=== PATIENT | male | born 1940 | race Caucasian/White ===

== ENCOUNTER 2018-08-27 21:51 | Inpatient (IN) | payer OTHER ==
--- OUTSIDE RECORDS SUMMARY | 2018-08-27 21:56 | XMS REPORT | Continuity of Care Document ---
:1940 Author Organization Interface Problems Problem Status Onset Classification Date Comments Source Date Reported BEDDED Active 01/14/20 [facility] OUTPATIENT/LEFT Medical NEPHROSTOMY TUBE Center BEDDED Active 10/30/19 [facility] OUTPATIENT/PCN Medical REPLACEMENT Center INDWELLING LINE Active 09/25/20 [place] [address] [facility] OTHER Active 09/25/[address] LABS--FOLLOW UP Active 09/03/[address] DECETAXEL Active 09/03/[address] LABS/FIRMAGON Active 09/03/[address] BEDDED Active 08/26/20 [facility] OUTPATIENT/BILATER Medical AL NEPHROSTOMY Center Kidney problem Resolved 07/30/20 Problem 02/28/2017 MICHAELA 16 Michael,[facility] PROSTATE CANCER Active 07/18/[address] Prostate carcinoma Active 09/28/18 Problem 02/28/2017 MICHAELA 93 Michael,[facility] High blood Resolved Problem 02/28/2017 MICHAELA pressure Michael,[facility] Hyperthyroidism Resolved Problem 02/28/2017 [facility],2.1 [id number], [place] Mayes MICHAELA [facility], MICHAELA Rodriguez Obesity Active Problem 02/28/2017 [facility] Kidney pain Active Problem 02/28/2017 MICHAELA Rodriguez,[facility] MECH COMPL OF Active [facility] Medication Details Route Status Patient Ordering Order Source Instructions Provider Date degarelix 80 mg, Route: Inactive 01/27/ [facility] SUB-Q, Drug 2016 Medical form: PDR/INJ, Center On Adm, Start date: 01/27/17 14:00:00 CDT, Duration: 1 doses or times, Stop date: 01/27/17 23:00:00 CDTNotes: Same as: Firmagon Non Formulary WASTE: F/P - Black; E - Yellow MEDICATION WASTE Product Size: 80 mg Product Wasted: 0 mg Hydromorphone 1 mg, 0.5 mL, Inactive [facility] Route: IVP, 2016 Medical Drug form: INJ, Center Q4H, Dosing Weight 90.909, kg, PRN Pain Score 7-10, Start date: 01/14/17 9:40:00 CDT, Duration: 30 day, Stop date: 02/13/17 9:39:00 CDTNotes: Same as: Dilaudid Ondansetron 4 mg, 2 mL, Inactive [facility] Route: IVP2016 Medical Drug form: INJ, Center Q8H, Dosing Weight 90.909, kg, PRN Nausea & Vomiting, Start date: 01/14/17 9:40:00 CDT, Duration: 30 day, Stop date: 02/13/17 9:39:00 CDTNotes: (Same as: Zoaugustina) MEDICATION WASTE Product Size: 4 mg Product Wasted: ___ mg Midazolam 0.5 mg, Route: Inactive [facility] IV, ONCE, 2016 Medical Dosing Weight Center 90.909, kg, Start date: 01/14/17 9:14:00 CDT, Stop date: 01/14/17 9:14:00 CDT Fentanyl 25 microgram, Inactive [facility] Route: IV, 2016 Medical ONCE, Dosing Center Weight 90.909, kg, Start date: 01/14/17 9:14:00 CDT, Stop date: 01/14/17 9:14:00 CDT, Midazolam 0.5 mg, Route: Inactive [facility] IV, ONCE, 2016 Medical Dosing Weight Center 90.909, kg, Start date: 01/14/17 9:06:00 CDT, Stop date: 01/14/17 9:06:00 CDT Fentanyl 25 microgram, Inactive [place] Route: IV, 2017 Medical ONCE, Dosing Center Weight 90.909, kg, Start date: 01/14/17 9:06:00 CDT, Stop date: 01/14/17 9:06:00 CDT, Levaquin 750 mg, 150 mL, Inactive [place] Route: IVPB, 2016 Medical Drug form: [place] SOLN, ONCE, Dosing Weight 90.909, kg, Start date: 01/14/17 7:12:00 CDT, Stop date: 01/14/17 7:12:00 CDTNotes: (Same as:Levaquin) Ciprofloxacin PO, Take for 7 Active [facility] 2016 Medical Center Ciprofloxacin 500 500 mg=1 tab, No Longer [place] MG Oral Tablet PO, BID, for Active 2016 Medical [Cipro] UTI, X 7 day, # Center 14 tab, 0 Refill(s), Pharmacy: [id number], cancel previous RX for cipro degarelix 80 mg, Route: Inactive [place] SUB-Q, Drug 2016 Medical form: PDR/INJ, Center ONCALL, Start date: 12/04/16 14:00:00 BREAKFAST BAR ATTENDANT, Duration: 1 doses or times, Stop date: 12/05/16 0:00:00 CSTNotes: Same as: Firmagon Non Formulary WASTE: F/P - Black; E - Yellow MEDICATION WASTE Product Size: 80 mg Product Wasted: _0__ mg ciprofloxacin 500 500 mg=1 tab, No Longer .16.840 mg oral tablet PO, Q12H, for Active 2016 .1.66463 possible UTI, X 3.3.615. 1 day, # 2 tab, 95 0 Refill(s), Pharmacy: [id number] degarelix 80 mg, Route: Inactive [place] SUB-Q, Drug 2016 Medical form: PDR/INJ, Center ONCALL, Start date: 11/06/16 7:00:00 BREAKFAST BAR ATTENDANT, Duration: 1 doses or times, Stop date: 11/06/16 21:00:00 CSTNotes: Same as: Firmagon Non Formulary WASTE: F/P - Black; E - Yellow MEDICATION WASTE Product Size: 80 mg Product Wasted: _0__ mg DOXOrubicin 40 mg Route: IV, Drug Inactive [place] + empty container form: INJ, 2016 Medical 1 bag + sodium ONCALL, Start Center chloride 0.9% INJ date: 10/28/16 28 mL 7:00:00 BREAKFAST BAR ATTENDANT, Duration: 1 doses or times, Stop date: 10/28/16 21:00:00 CSTNotes: (Same as: Adriamycin) WASTE: F/P - Black; E - Yellow CHEMOTHERAPY; Infuse entire contents for full dose DOXOrubicin 40 mg Route: IV, Drug Inactive [place] + empty container form: INJ, 2016 Medical 1 bag + sodium ONCALL, Start Center chloride 0.9% INJ date: 10/21/16 28 mL 7:00:00 BREAKFAST BAR ATTENDANT, Duration: 1 doses or times, Stop date: 10/21/16 21:00:00 CSTNotes: (Same as: Adriamycin) WASTE: F/P - Black; E - Yellow CHEMOTHERAPY; Infuse entire contents for full dose Sodium Chloride IV, 500 ml/hr, Inactive [place] 0.45% IV On Adm, Start 2016 Medical date: 10/14/16 Center 11:23:00 BREAKFAST BAR ATTENDANT, Duration: 1, 1,000 ml Zofran 8 mg, 2 tab, Inactive [place] Route: PO, Drug 2016 Medical form: TAB, On Center Adm, Start date: 10/14/16 7:00:00 BREAKFAST BAR ATTENDANT, Duration: 1 doses or times, Stop date: 10/14/16 21:00:00 CSTNotes: (Same as: Zofran) DOCEtaxel 70 mg + Route: IV, On Inactive [place] Overfill Diluent Adm, Start 2016 Medical Estimated 25 mL + date: 10/14/16 [place] sodium chloride 7:00:00 BREAKFAST BAR ATTENDANT, 0.9% INJ 250 mL Duration: 1 doses or times, Stop date: 10/14/16 21:00:00 CSTNotes: Same as: Taxotere Use non-PVC bag and tubing set for administration. CHEMOTHERAPY.I nfuse entire contents for full dose WASTE: F/P - Black; E - Yellow MEDICATION WASTE Product Size: 80 mg Product Wasted: __10_ mg Benadryl 25 mg, 0.5 mL, Inactive [facility] Route: IV, Drug 2016 Medical form: INJ, On Center Adm, Start date: 10/14/16 7:00:00 BREAKFAST BAR ATTENDANT, Duration: 1 doses or times, Stop date: 10/14/16 21:00:00 CSTNotes: (Same as: Benadryl) dexamethasone 12 mg, 50 mL, Inactive [facility] Route: IVPB, 2017 Medical Drug form: Center SOLN, On Adm, Start date: 10/14/16 7:00:00 BREAKFAST BAR ATTENDANT, Duration: 1 doses or times, Stop date: 10/14/16 21:00:00 CSTNotes: (Same as: Decadron) Use with 50 mL NS bag degarelix 80 mg, Route: Inactive [facility] SUB-Q, Drug 2016 Medical form: PDR/INJ, Center ONCALL, Start date: 10/07/16 13:00:00 BREAKFAST BAR ATTENDANT, Duration: 1 doses or times, Stop date: 10/07/16 21:00:00 CSTNotes: Same as: Firmagon Non Formulary WASTE: F/P - Black; E - Yellow MEDICATION WASTE Product Size: 80 mg Product Wasted: _0__ mg DOXOrubicin 40 mg Route: IV, Drug Inactive [facility] + empty container form: INJ, 2017 Medical 1 bag + sodium ONCALL, Start Center chloride 0.9% INJ date: 10/07/16 28 mL 7:00:00 BREAKFAST BAR ATTENDANT, Duration: 1 doses or times, Stop date: 10/07/16 21:00:00 CSTNotes: (Same as: Adriamycin) WASTE: F/P - Black; E - Yellow CHEMOTHERAPY; Infuse entire contents for full dose promethazine 12.5 12.5 mg=1 tab, Active .16.840 mg oral tablet PO, TID, PRN 2017 .1.34989 Nausea & 3.3.615. Vomiting, X 10 95 day, # 30 tab, 5 Refill(s), Pharmacy: [id number] POLYETHYLENE 17 gm, 1 pkt, No Longer [facility] GLYCOL 3350 Route: PO, Drug Active 2015 Medical form: PWDR, Center Daily, Dosing Weight 90, kg, Start date: 09/26/16 9:00:00 BREAKFAST BAR ATTENDANT, Duration: 30 day, Stop date: 10/25/16 9:00:00 CSTNotes: Dissolve in 8 oz of water or juice. (Same as: Miralax) sennosides, GROUP HOME 17.2 mg, 2 tab, Inactive [facility] Route: PO, Drug 2015 Medical Form: TAB, Center Dosing Weight 90, kg, Bedtime, Start date: 09/25/16 21:00:00 BREAKFAST BAR ATTENDANT, Duration: 30 day, Stop date: 10/24/16 21:00:00 CSTNotes: (Same as: Senokot) Docusate 100 mg, 1 cap, Inactive [place] Route: PO, Drug 2015 Medical form: CAP, BID, Center Dosing Weight 90, kg, Start date: 09/25/16 17:00:00 BREAKFAST BAR ATTENDANT, Duration: 30 day, Stop date: 10/25/16 9:00:00 CSTNotes: (Same as: Colace) (Do Not Crush) Ondansetron 4 MG 4 mg=1 tab, PO, Active [place] Oral Tablet Q6H, PRN 2016 Medical [Zofran] Nausea/Vomiting Center , X 8 day, # 30 tab, 0 Refill(s) tramadol 1 - 2 tabs, PO, Active [place] hydrochloride 50 Q4-6H, PRN Pain 2016 Medical MG Oral Tablet Score 4-6, X 4 Center [Ultram] day, # 30 tab, 0 Refill(s) Cephalexin 500 MG 500 mg=1 cap, Active [place] Oral Capsule PO, QID, X 7 2016 Medical [Keflex] day, # 28 cap, Center 0 Refill(s) Fish Oil 1000 mg 1,000 mg=1 cap, On Hold [place] oral capsule PO, Daily, 0 2016 Medical Refill(s) Center simvastatin 20 mg 20 mg=1 tab, On Hold [facility] oral tablet PO, Bedtime, # 2016 Medical 30 tab, 1 Center Refill(s) Tramadol 50 mg, 1 tab, Inactive [facility] Route: PO, Drug 2015 Medical form: TAB, Center Q6Hnow, Dosing Weight 90, kg, Start date: 09/25/16 10:00:00 BREAKFAST BAR ATTENDANT, Duration: 30 day, Stop date: 10/25/16 4:00:00 CSTNotes: Not to exceed 400mg/day. (Same As: Ultram) Ondansetron 4 mg, 2 mL, Inactive [facility] Route: IVP2015 Medical Drug form: INJ, Center Q8H, Dosing Weight 90, kg, PRN Nausea & Vomiting, Start date: 09/25/16 9:56:00 BREAKFAST BAR ATTENDANT, Duration: 30 day, Stop date: 10/25/16 9:55:00 CSTNotes: (Same as: Holly) MEDICATION WASTE Product Size: 4 mg Product Wasted: ___ mg Methocarbamol 1,000 mg, 2 Inactive [facility] tab, Route: PO, 2015 Medical Drug form: TAB, Center Q8H, Dosing Weight 90, kg, PRN Muscle Spasms, Start date: 09/25/16 9:56:00 BREAKFAST BAR ATTENDANT, Duration: 30 day, Stop date: 10/25/16 9:55:00 CSTNotes: (Same as:Robaxin) Oxycodone 10 mg, 2 tab, Inactive [facility] Hydrochloride 5 Route: PO, Drug 2015 Medical MG Oral Tablet form: TAB, Q4H, Center Dosing Weight 90, kg, PRN Pain Score 7-10, Start date: 09/25/16 9:56:00 BREAKFAST BAR ATTENDANT, Duration: 30 day, Stop date: 10/25/16 9:55:00 CSTNotes: (Same as: Roxicodone) Morphine 2 mg, 0.5 mL, Inactive [facility] Route: IVP, 2015 Medical Drug form: Center SOLN, Q4H, Dosing Weight 90, kg, PRN Pain Score 7-10, Start date: 09/25/16 9:56:00 BREAKFAST BAR ATTENDANT, Duration: 30 day, Stop date: 10/25/16 9:55:00 CSTNotes: (Same as:MORPhine Sulfate) Acetaminophen 1,000 mg, 2 Inactive [place] tab, Route: PO, 2016 Medical Drug form: TAB, Center Q6Hnow, Dosing Weight 90, kg, PRN Pain 1-3/Temp > 100.4 F, Start date: 09/25/16 9:56:00 BREAKFAST BAR ATTENDANT, Duration: 30 day, Stop date: 10/25/16 9:55:00 CSTNotes: Max acetaminophen 4000 mg/day (4 gm/day). (Same as: Tylenol Extra Strength) ketoconazole 200 See Active .16.840 mg oral tablet Instructions, 2 2016 .1.24818 tabs PO tid x 7 3.3.615. days on weeks 95 1, 3, and 5; empty stomach; take each dose with Vit C 250mg, # 84 tab, 5 Refill(s), Pharmacy: [facility]/pharmacy #[id number] promethazine 12.5 12.5 mg=1 tab, Active .16.840 mg oral tablet PO, QID, PRN 2016 .1.31346 Nausea & 3.3.615. Vomiting, X 30 95 day, # 120 tab, 5 Refill(s), Pharmacy: [facility]/pharmacy #[id number] ondansetron 8 mg 8 mg=1 tab, PO, Active .16.840 oral tablet TID, PRN 2016 .1.16343 nauea-vomiting, 3.3.615. X 30 day, # 90 95 tab, 3 Refill(s), Pharmacy: [facility]/pharmacy #[id number] dexamethasone 4 See Active .16.840 mg oral tablet Instructions, 1 2016 .1.82634 tab PO BID day 3.3.615. before, day of, 95 day after taxotere infusion, # 30 tab, 1 Refill(s), Pharmacy: [facility]/pharmacy #[id number] warfarin 1 mg 1 mg=1 tab, PO, Active .16.840 oral tablet Daily, # 30 2016 .1.48597 tab, 5 3.3.615. Refill(s), 95 Pharmacy: [facility]/pharmacy #[id number] Estramustine 140 See Active .16.840 MG Oral Capsule Instructions, 2 2015 .1. [Emcyt] cap PO TID x 7 3.3.615. days on weeks 95 2, 4, and 6, # 84 caplet, 5 Refill(s), Pharmacy: [facility]/pharmacy #[id number] hydrocortisone 10 See Active .16.840 mg oral tablet Instructions, 2 2015 .1. tabs PO QAM and 3.3.615. 1 tab QPM, # 90 95 tab, 5 Refill(s), Pharmacy: [facility]/pharmacy #[id number] DOXOrubicin + 42 mg, 21 mL, Inactive [place] sodium chloride Route: IV, Drug 2015 Medical 0.9% INJ 27 mL form: INJ, Center ONCALL, Start date: 09/08/16 7:00:00 BREAKFAST BAR ATTENDANT, Duration: 1 doses or times, Stop date: 09/08/16 21:00:00 CSTNotes: (Same as: Adriamycin) WASTE: F/P - Black; E - Yellow CHEMOTHERAPY; Infuse entire contents for full dose Tramadol 50 mg, 1 tab, No Longer [place] Route: PO, Drug Active 2015 Medical form: TAB, Q6H, Center Dosing Weight 95.909, kg, PRN Pain Score 4-6, Start date: 08/29/16 15:13:00 BREAKFAST BAR ATTENDANT, Duration: 30 day, Stop date: 09/28/16 15:12:00 CSTNotes: Not to exceed 400mg/day. (Same As: Ultram) Acetaminophen 650 mg, 2 tab, No Longer [place] Route: PO, Drug Active 2015 Medical form: TAB, Q4H, Center Dosing Weight 95.909, kg, PRN Pain Score 1-3, Start date: 08/29/16 15:13:00 BREAKFAST BAR ATTENDANT, Duration: 30 day, Stop date: 09/28/16 15:12:00 CSTNotes: Do not exceed 4 gm/day. (Same as: Tylenol) Versed 0.5 mg, Route: Inactive [place] IV, ONCE, 2015 Medical Dosing Weight Center 95.909, kg, Start date: 08/29/16 14:02:00 BREAKFAST BAR ATTENDANT, Stop date: 08/29/16 14:02:00 BREAKFAST BAR ATTENDANT Fentanyl 25 microgram, Inactive [facility] Route: IV, 2015 Medical ONCE, Dosing Center Weight 95.909, kg, Start date: 08/29/16 14:02:00 BREAKFAST BAR ATTENDANT, Stop date: 08/29/16 14:02:00 BREAKFAST BAR ATTENDANT, Versed 1 mg, Route: Inactive [facility] IV, ONCE, 2015 Medical Dosing Weight Center 95.909, kg, Start date: 08/29/16 13:03:00 BREAKFAST BAR ATTENDANT, Stop date: 08/29/16 13:03:00 BREAKFAST BAR ATTENDANT Fentanyl 50 microgram, Inactive [facility] Route: IV, 2015 Medical ONCE, Dosing Center Weight 95.909, kg, Start date: 08/29/16 13:03:00 BREAKFAST BAR ATTENDANT, Stop date: 08/29/16 13:03:00 BREAKFAST BAR ATTENDANT, Fentanyl 50 microgram, Inactive [facility] Route: IV, 2015 Medical ONCE, Dosing Center Weight 95.909, kg, Start date: 08/29/16 12:50:00 BREAKFAST BAR ATTENDANT, Stop date: 08/29/16 12:50:00 BREAKFAST BAR ATTENDANT, Versed 1 mg, Route: Inactive [facility] IV, ONCE, 2015 Medical Dosing Weight Center 95.909, kg, Start date: 08/29/16 12:50:00 BREAKFAST BAR ATTENDANT, Stop date: 08/29/16 12:50:00 BREAKFAST BAR ATTENDANT Levaquin 750 mg, Route: Inactive [facility] IVPB, Drug 2015 Medical form: CAITN, [place] ONCE, Dosing Weight 95.909, kg, Start date: 08/29/16 10:31:00 BREAKFAST BAR ATTENDANT, Stop date: 08/29/16 10:31:00 BREAKFAST BAR ATTENDANT Multiple Vitamins 1 tab, PO, Active [place] oral tablet Daily, 0 2015 Medical Refill(s) [place] degarelix 240 mg, Route: Inactive [facility] SUB-Q, Drug 2015 Medical form: PDR/INJ, Center On Adm, Start date: 08/27/16 13:05:00 BREAKFAST BAR ATTENDANT, Duration: 1 doses or times, Stop date: 08/28/16 0:00:00 CSTNotes: Same as; Firmagon Non Formulary WASTE: F/P - Black; E - Yellow MEDICATION WASTE Product Size: 240 mg Product Wasted: ___ mg Tylenol PO, 0 Refill(s) Active [facility] 2015 Medical [place] levothyroxine 100 100 microgram=1 Active [facility] mcg (0.1 mg) oral tab, PO, Daily, 2016 Medical tablet 0 Refill(s) [place] Turmeric Turmeric, 720 Active [place] mg=, Refill(s) 2015 Medical 0 Center jennifer rodriguez, 225mcg, Active [facility] Refill(s) 0 2015 Medical [place] simvastatin 20 mg 20 mg=1 tab, Active [facility] oral tablet PO, Bedtime, 0 2015 Medical Refill(s) [place] Vitamin C 1000 mg 1,000 mg=1 tab, Active [facility] oral tablet PO, Daily, 0 2015 Medical Refill(s) [place] omega-3 1,000 mg=1 cap, Active [facility] polyunsaturated PO, TID, 0 2015 Medical fatty acids 1000 Refill(s) Center mg oral capsule lisinopril 10 mg 10 mg=1 tab, Active [facility] oral tablet PO, Daily, 0 2015 Medical Refill(s) [place] vitamin E with 0 Refill(s) Active [place] mixed tocopherols 2016 Medical 400 intl units [place] oral capsule Vitamin D3 5000 5,000 Active [place] intl units oral IntlUnit=1 tab, 2016 Medical tablet PO, Daily, 0 Center Refill(s) Allergies, Adverse Reactions, Alerts Substance Category Reaction Severity Reaction Status Date Comments Source type Reported Immunizations Immunization Date Given Site Status Last Updated Comments Source Results Order Name Results Value Reference Date Interpretation Comments Source Range CHEM PANEL eGFR 49 01/14 Result Comment: The eGFR is calculated using the CKD-EPI formula. In most young, healthy individuals the eGFR will be >90 mL/ min/1.73m2. The eGFR declines with age. An eGFR of 60-89 may be normal in [facility] mL/min/1.7 some populations, particularly the elderly, for whom the CKD-EPI formula has not been extensively validated. Use of the eGFR is not recommended in the following populations: [address] Individuals with unstable creatinine concentrations, including patients and those with serious co-morbid conditions. Patients with extremes in muscle mass or diet. The data above are obtained from the National Kidney Disease Education Program (NKDEP) which additionally recommends that when the eGFR is used in patients with extremes of body mass index for purposes of drug dosing, the eGFR should be multiplied by the estimated BMI. CHEM PANEL Total 6.6 g/dL 6.4 - 8.4 01/[address] [facility] CHEM PANEL Calcium Lvl 8.9 mg/dL 8.5 - 10.5 01/14 [facility]2016 [facility] CHEM PANEL Albumin Lvl 3.1 g/dL 3.5 - 5.0 01/[address] [facility] CHEM PANEL ALT 16 unit/L 0 - 65 01/[address] [facility] CHEM PANEL AST 12 unit/L 0 - 37 01/14 [facility]2016 [facility] CHEM PANEL Alk Phos 75 unit/L 39 - 136 01/[address] [facility] CHEM PANEL Bili Total 0.4 mg/dL 0.2 - 1.3 01/[address] [facility] CHEM PANEL Creatinine 1.38 mg/dL 0.50 - 01/14 [facility] Lvl [address].40 [facility] CHEM PANEL Sodium Lvl 141 meq/L 135 - 145 01/[address] [facility] CHEM PANEL Chloride Lvl 106 meq/L 95 - 109 01/14 [facility] CHEM PANEL CO2 27 meq/L 24 - 32 01/14 [facility] CHEM PANEL Potassium 3.6 meq/L 3.5 - 5.1 01/[address] [facility] CHEM PANEL BUN 22 mg/dL 7 - 22 01/14 [facility] CHEM PANEL Glucose Lvl 92 mg/dL 70 - 99 01/14 [facility] CHEM PANEL B/C Ratio 16 6 - 25 01/14 [facility] CHEM PANEL A/G Ratio 0.9 0.7 - 1.6 01/14 [facility] CHEM PANEL Globulin 3.5 g/dL 2.7 - 4.2 01/14 [facility] CHEM PANEL AGAP 11.6 meq/L 10.0 - 01/[address] [facility] HEMATOLOGY PTT 29.0 s 22.9 - 01/[address] [facility] HEMATOLOGY PT 13.3 s 12.0 - 01/[address] [facility] HEMATOLOGY INR 0.99 0.85 - 01/[address] [facility] HEMATOLOGY Hct 37.9 % 42.0 - 01/[address] [facility] HEMATOLOGY MCV 87.2 fL 80.0 - 01/[address] [facility] HEMATOLOGY Hgb 12.2 g/dL 14.0 - 01/[address] [facility] HEMATOLOGY MPV 7.9 fL 7.4 - 10.4 01/14 [facility] HEMATOLOGY WBC 7.3 K/CMM 3.7 - 10.4 01/14 [facility] HEMATOLOGY RBC 4.34 M/CMM 4.70 - 01/[address] [facility] HEMATOLOGY Platelet 240 K/CMM 133 - 450 01/14 [facility] HEMATOLOGY MCHC 32.2 g/dL 32.0 - 01/[address] [facility] HEMATOLOGY RDW 14.7 % 11.5 - 01/[address] [facility] HEMATOLOGY MCH 28.1 pg 27.0 - 01/[address] [facility] HEMATOLOGY Basophils # 0.1 K/CMM 0.0 - 0.2 01/[address] [facility] HEMATOLOGY Eosinophils 0.3 K/CMM 0.0 - 0.5 01/14 [facility] # /2017 [facility] HEMATOLOGY Lymphocytes 31.9 % 20.0 - 01/[address] [place] [address] [facility] HEMATOLOGY Monocytes # 0.7 K/CMM 0.0 - 0.8 01/[address] [facility] HEMATOLOGY Segs-Bands # 4.0 K/CMM 1.5 - 8.1 01/14 /2016 [facility] HEMATOLOGY Segs 54.3 % 45.0 - 01/[address] [place] [address] [facility] HEMATOLOGY Basophils 0.7 % 0.0 - 1.0 01/14 [facility]2016 [facility] HEMATOLOGY Lymphocytes 2.3 K/CMM 1.0 - 5.5 01/[address] [facility] HEMATOLOGY Monocytes 9.5 % 2.0 - 12.0 01/14 [facility]2016 [facility] HEMATOLOGY Eosinophils 3.6 % 0.0 - 4.0 01/[address] [facility] Nephrostomy Nephrostomy PROCEDURES: 01/14 - [facility] tube tube - Medical exchange VR exchange VR 1. Left antegrade nephrostogram through existing nephrostomy tube. This report was dictated by a Rn Home Care/ Fellow. I have personally reviewed the images as Center well as the Resident's interpretation and agree with the findings. 2. Right antegrade nephrostogram through existing nephrostomy tube. Read by: Farrukh Boogie MD Resident: Farrukh Boogie MD Dictated Date/time: 01/14/17 09:43 3. Left nephrostomy tube exchange. Electronically Signed by: Leslie Bruno MD 01/14/17 09:53 FINAL REPORT 4. Right nephrostomy tube exchange. OPERATORS: Farrukh Boogie MD MPH. ATTENDING: Leslie Bruno MD. FLUOROSCOPY: 4.0 minutes. PROCEDURE IN DETAIL: Informed written consent was obtained. A timeout was performed verifying the correct patient and procedure. The patient is placed in the prone position. The patient's back was prepped and draped in the normal sterile fashion. Antegrade nephrostogram through the existing left nephrostomy tube was performed demonstrating complete occlusion of the tube. Antegrade nephrostogram of the right nephrosto my tube was performed demonstrating patency of the tube. Our attention was first turned to exchanging the left nephrostomy tube. A Glidewire was not able to be passed through the clogged tube. A Glidewire was then inserted into the tract, parallel to the tube . The existing tube was then removed and a new 10.2-[place] nephrostomy tube was placed over the guidewire into the left collecting system. Adequate positioning was confirmed with contrast injection. The tube was secured to the skin with Prolene suture. A sterile dressing was applied. Our attention was then turned to exchanging the right nephrostomy tube. A fixed core guidewire was passed through the tube. The existing tube was then removed and a new 10.2-[place] nephrostomy tube was placed over the guidewire into the right collecting system. Adequate positioning was confirmed with contrast injection. The tube was secured to the skin with Prolene suture. A sterile dressing was applied. The patient tolerated the procedure well without evidence of immediate complication. IMPRESSION: 1. Completely clogged left nephrostomy tube. 2. Successful exchange of bilateral nephrostomy tubes. PLAN: 1. Routine check and change of bilateral nephrostomy tubes in 2 months. The tubes may be flushed with 10 mL sterile saline up to 3 times a day to maintain patency. Pelvis w/wo Pelvis w/wo EXAM: MR PELVIS WITH AND WITHOUT CONTRAST 01/01 - [facility] contrast contrast MRI /2016 - [facility] This report was dictated by a Rn Home Care/Fellow. I have personally reviewed the images as well as the Resident's interpretation and agree with the findings. DATE: 01/01/2017 3:01 PM CDT Read by: Cheyanne Harrington MD Resident: Cheyanne Harrington MD Dictated Date/time: 01/02/17 09:29 Electronically Signed by: Rio Bob MD 01/02/17 15:35 FINAL REPORT INDICATION: Prostate cancer - prostate protocol ADDITIONAL INFORMATION: None. COMPARISON: MRI August 27, 2016 TECHNIQUE: TECHNIQUE: Multiplanar, multisequence acquisition of the prostate both prior to and following intravenous contrast, per the dynamic prostate protocol. Axial, sagittal and coronal reconstructi ons. The study was transferred to work station for post processing. IV contrast: 20 mL MultiHance FINDINGS: Decrease in size of the infiltrative tumor which circumferentially involves the urethrovesical junction and extends to the bladder base. Although difficult to measure due to its infiltrative nature, it measures approximately 1.9 x 2 cm (compared to 2.5 x 2.3 cm previously. There is still abnormal early enhancement, although, the lesion demonstrates less diffusion restriction compared to previously. Th ere is continued low T2 signal of the seminal vesicles which suggests involvement. Lymph nodes: No pelvic lymphadenopathy. Bones: No suspicious abnormality IMPRESSION: Decrease in size of the infiltrative tumor which circumferentially involves the urethrovesical junction extending to the bladder base. Abdomen/Pel Abdomen/Pelv EXAM: CT ABDOMEN AND PELVIS WITH CONTRAST 11/19 - [facility] vis w IV is w /2016 - [facility] contrast CT contrast CT Imaging DATE: 11/19/2016 2:42 PM BREAKFAST BAR ATTENDANT Read by: Saturnion Kim MD Dictated Date/time: 11/19/16 13:54 Electronically Signed by: Saturnino Kim MD 11/19/16 14:10 FINAL REPORT INDICATION: Prostate cancer. Patient had history of prostate cancer years ago with recurrence. The patient has been on chemotherapy for the past 2 weeks. ADDITIONAL INFORMATION: History of prior hyperintensity focused ultrasound for prostate cancer. COMPARISON: CT scan of the abdomen and pelvis of 08/20/2016. MRI of the prostate of 08/27/2016. TECHNIQUE: Volumetric CT acquisition of the abdomen and pelvis after intravenous contrast. Axial, coronal and sagittal reconstructions. Postcontrast phases: Venous and delayed. IV contrast: 100 cc of Omnipaque 300 Oral contrast: Redicat. FINDINGS: Lines and tubes: Bilateral nephrostomy tubes have been placed in the interim with resolution of bilateral hydroureteronephrosis. The pigtails of both nephrostomy tubes are located within the renal pelvises. Lower thorax: Please see the separate CT scan of the chest performed concurrently with this exam for details on the lower thorax.. Liver: Normal. Biliary tree: No intra- or extrahepatic biliary ductal dilation. Gallbladder: Normal. No CT evidence of gallstones. Pancreas: Normal. Spleen: Normal. Adrenals: Normal. Kidneys and ureters: Stable renal cysts are demonstrated. Other tiny hypodensities which are too small to characterize are seen in both kidneys. Bilateral nephrostomy tubes are demonstrated as above. A nonobstructing stable 5 mm calculus is seen in the left kidney interpolar minor calyceal system posteriorly. The right kidney is again noted to be somewhat atrophic with decreased relative enhancement w ith respect to the left kidney. The ureters are of normal course and caliber. Bladder: There is diffuse bladder wall thickening present, new from the prior exam. Bladder wall measures 9 mm in maximal thickness. There is new mucosal enhancement of the bladder is well. No surrounding stranding is noted. Prostate: An enhancing soft tissue mass is again seen along the anterior central aspect of the prostate gland measuring approximately 2.0 cm in maximal diameter at the level of the ureterovesicular junc tion with extension into the bladder base and seminal vesicles as seen on the prior prostate MRI. This lesion may have slightly decreased in size and appear the prior CT exam although exact comparison is difficult. Gastrointestinal tract: The stomach is normal in appearance. Scattered colonic diverticuli are again demonstrated with no CT evidence of acute diverticulitis. No other abnormalities of the large and sm all bowel are seen. The small intestine and colon are of normal course and caliber with no constricting or obstructing lesions, masses, or surrounding inflammatory changes. No rectal or perirectal abnormalities are seen. Appendix: Normal Peritoneum and retroperitoneum: No ascites or free air. Lymph nodes: No abdominal or pelvic lymphadenopathy is seen. No periprostatic lymphadenopathy is demonstrated. Vasculature: Stable calcified atherosclerotic plaque formation is present in the arterial structures. No aneurysms or dissections are seen. The inferior vena cava and portal venous system are normal in appearance. Bones: Stable degenerative changes are present in the visualized thoracolumbar spine with disc space height loss at L5-S1. No suspicious lytic or blastic lesions are seen.. Soft tissues/abdominal wall: Normal. No hernias, masses, or fluid collections are seen. IMPRESSION: 1. Mass within the prostate as described above and as fully characterized on the prior MRI of 08/27/2016. Exact comparison is difficult to perform on CT examination. The lesion appears to be slightly sm aller based on CT. Repeat MRI of the prostate gland may be performed for further evaluation. 2. Status post placement of bilateral nephrostomy tubes with resolution of bilateral hydroureteronephrosis. 3. Stable atrophy of the right kidney with slightly delayed/decreased enhancement of the right kidney, also stable. This is likely from a prior infectious, inflammatory, or traumatic insult. 4. Stable left renal nephrolithiasis. Stable cysts in both kidneys. 5. Diffuse moderate bladder wall thickening with associated mucosal enhancement may be the sequela of chemotherapeutic affect with mucosal inflammation. Other nonspecific inflammatory cystitis or infectious cystitis is not excluded. 6. Stable colonic diverticulosis with no CT evidence of acute diverticulitis. 7. For details on the included thorax, please in the separate CT scan of the chest performed concurrently with this exam. Chest w Chest w EXAM: CT CHEST WITH CONTRAST 11/[address] CT /2016 - [facility] DATE: 11/19/2016 2:42 PM BREAKFAST BAR ATTENDANT Read by: Issac Zepeda MD Dictated Date/time: 11/19/16 14:49 Electronically Signed by: Issac Zepeda MD 11/19/16 21:48 FINAL REPORT INDICATION: prostate carcinoma TECHNIQUE: Volumetric CT acquisition of the chest, following intravenous contrast. Axial, sagittal and coronal reconstructions. IV Contrast: . DLP: mGy-cm COMPARISON: CT chest dated 08/20/2016. FINDINGS: Lines and Tubes: There is a right IJ approach infusion port catheter, with its tip in the SVC at the cavoatrial junction. Lower Neck: The visible portions or the lower neck and thyroid are unremarkable. Heart and Great Vessels: There is mild atherosclerotic calcification in the aortic arch. Mild calcification of the left anterior descending and left circumflex coronary arteries. Heart size is normal. No pericardial effusion. Lymph Nodes: A couple of nonspecific mediastinal and hilar lymph nodes are stable since 08/20/2016. No hilar, mediastinal, axillary or internal mammary lymphadenopathy. A few calcified lymph nodes are demonstrated. Lungs: Clear, without consolidation or suspicious nodules. A few calcified granulomata, the sequela of old granulomatous infection. Pleura: No pleural effusion or pneumothorax. Upper abdomen: Please refer to separate report for details below the diaphragm. Bones and Soft Tissues: Unremarkable. IMPRESSION: 1. No evidence for intrathoracic metastatic disease. 2. Stable sequela of granulomatous infection. 3. Mild atherosclerotic calcification of the thoracic aorta and coronary arteries. Bone scan Bone scan NM EXAM: NM Bone Joint Imaging Whole Body 11/19 [facility] NM /2016 - [facility] DATE: 11/19/2016 2:42 PM BREAKFAST BAR ATTENDANT Read by: Michaela Syed MD Dictated Date/time: 11/19/16 15:17 Electronically Signed by: Michaela Syed MD 11/19/16 15:25 FINAL REPORT INDICATION: Prostate cancer, restaging. COMPARISON: Prior bone scan dated 08/20/2016 TECHNIQUE: Approximately 2 hours delayed whole body images were obtained after intravenous administration of 23.2 mCi of Tc-99m MDP. Additional static images of the pelvis were also obtained. FINDINGS: Mild increased focal tracer uptake in the right shoulder, right acromioclavicular joint, right patella and mid to lower thoracic costovertebral junctions as well as in the disc space between L4/L5 verte brae is likely degenerative in nature and is unchanged compared to prior study. Bilateral nephrostomy tubes are noted in place. Tracer is seen in the draining into the left urine bag but not into the right tearing bag. Tracer distribution throughout the background soft tissue is increased likely due to compromised renal function. IMPRESSION: No evidence of bony metastases and no significant change compared to prior study. Diffuse increased background soft tissue activity suggestive of compromised renal function. Degenerative changes in the spine and peripheral joints are noted. Nephrostomy Nephrostomy STUDY: 10/31 - [place] tube tube /2016 - Medical exchange VR exchange VR VIR Right Nephrostomy Catheter Replacement This report was dictated by a Rn Home Care/Fellow. I have personally reviewed the images as Center well as the Resident's interpretation and agree with the findings. VIR Left Nephrostomy Catheter exchange Read by: Sarika Shukla MD Resident: Sarika Shukla MD Dictated Date/time: 10/31/16 12:47 Electronically Signed by: James Junior 10/31/16 23:13 FINAL REPORT DATE: 10/31/2016 7:06 AM BREAKFAST BAR ATTENDANT INDICATION(S): 76 yo male with bilateral nephrostomy tubes originally placed on 08/29/2017 presents after his right tube fell out two days ago. PROCEDURE(S) PERFORMED: 1. Successful left Nephrostomy Tube Exchange 2. Successful right Nephrostomy Tube Replacement LOCOMOTIVE ENGINEER ELECTRIC: Dr. Sarika Shukla ROTATING EQUIPMENT SPECIALIST(S): None CONSENT: Written consent obtained after discussing the indications, procedure, potential benefits, alternatives and risks SEDATION/PAIN CONTROL: Moderate conscious sedation was administered by a dedicated nurse under my supervision. There was continuous monitoring of BP, pulse and oxygen saturation. PROCEDURE IN DETAIL: The patient was then brought to the procedure suite, placed in the prone position, and a timeout was performed. The patient's bilateral flanks and indwelling left nephrostomy tube were then prepped and draped in standard sterile fashion. Tight Barrel Inspector image was then obtained, demonstrating the left nephrostomy tube to be in expected position. Contrast injection was then performed demonstrating the nephro stomy to be coiled within the left renal pelvis. After giving local anesthesia with 1% lidocaine, the skin stitch was cut, and the pigtail unlocked. Then a Stiff Loyal 0.035 inch guidewire was inserted through the catheter and coiled within the renal pelvis, and then the catheter was removed over the wire. A new 10 [place] pigtail catheter was inserted over the wire, and the pigtail formed and locked w ithin the renal pelvis. Appropriate positioning of this catheter was confirmed by an injection of contrast. The catheter was secured to the skin at the exit site with a 2-0 nylon stitch. It was left con nected to a bag for external gravity drainage. A sterile dressing was applied. Our attention then turned to the right side. After anesthetizing the skin with 1% Lidocaine, the patient's existing tract was cannulated with a 5 [place] Kumpe catheter and a 0.035 inch Loyal wire. The wire and catheter were advanced in concert through the tract into the right collecting system. The wire was removed and subsequent contrast injection through the catheter confirmed proper position. A 0.035 inch Amplatz wire was then advanced through the catheter and coiled in the right collecting system. The tract was then serially dilated over the wire with 8 and 10 [place] dilators. A new 10 Fren ch pigtail catheter was inserted over the wire, and the pigtail formed and locked within the renal pelvis. Appropriate positioning of this catheter was confirmed by an injection of contrast. The cathete r was secured to the skin at the exit site with a 2-0 nylon stitch. It was left connected to a bag for external gravity drainage. A sterile dressing was applied. The patient appeared to tolerate the procedure well. FINDINGS: 1. Successful exchange left nephrostomy tube. 2. Dilated right collecting system. 3. Successful re-access of the right collecting system through the existing tract and placement of nephrostomy tube. COMPLICATIONS: None ESTIMATED BLOOD LOSS: Minimal FLUOROSCOPIC TIME: 6.4 minutes RADIATION DOSE: 42.9 mGy IMPRESSION: 1. Successful exchange of 10 Saudi [place] left nephrostomy tube. 2. Successful replacement of 10 [place] right nephrostomy tube. PLAN/FOLLOW UP: Patient to return in 3 months for bilateral exchange should he still need nephrostomy tubes. Dr. James Junior MD, IR Attending, was present for the procedure. BLOOD BANK ABO/Rh A POS 09/25 [facility] RESULTS /2015 [facility] BLOOD BANK Antibody Negative 09/25 [facility] RESULTS [facility] (09/25/16 9:25 AM) [place] CHEM PANEL Albumin Lvl 2.8 g/dL 3.5 - 5.0 09/25 [facility] CHEM PANEL Bili Total 0.6 mg/dL 0.2 - 1.3 09/25 [facility] CHEM PANEL ALT 20 unit/L 0 - 65 09/25 [facility] CHEM PANEL Alk Phos 93 unit/L 39 - 136 09/25 [facility] CHEM PANEL AST 12 unit/L 0 - 37 09/25 [facility] CHEM PANEL Total 6.4 g/dL 6.4 - 8.4 09/25 [facility] Protein [facility] CHEM PANEL eGFR 46 09/25 Result Comment: The eGFR is calculated using the CKD-EPI formula. In most young, healthy individuals the eGFR will be >90 mL/ min/1.73m2. The eGFR declines with age. An eGFR of 60-89 may be normal in [facility] mL/min/1.7 /2015 some populations, particularly the elderly, for whom the CKD-EPI formula has not been extensively validated. Use of the eGFR is not recommended in the following populations: [address] Individuals with unstable creatinine concentrations, including patients and those with serious co-morbid conditions. Patients with extremes in muscle mass or diet. The data above are obtained from the National Kidney Disease Education Program (NKDEP) which additionally recommends that when the eGFR is used in patients with extremes of body mass index for purposes of drug dosing, the eGFR should be multiplied by the estimated BMI. CHEM PANEL Potassium 3.8 meq/L 3.5 - 5.1 09/[address] [facility] [address] [facility] CHEM PANEL Calcium Lvl 8.6 mg/dL 8.5 - 10.5 09/25 [facility] CHEM PANEL CO2 25 meq/L 24 - 32 09/25 [facility] CHEM PANEL Chloride Lvl 107 meq/L 95 - 109 09/25 [facility] CHEM PANEL Sodium Lvl 142 meq/L 135 - 145 09/25 [facility] CHEM PANEL BUN 25 mg/dL 7 - 22 09/25 [facility] CHEM PANEL Glucose Lvl 105 mg/dL 70 - 99 09/25 [facility] CHEM PANEL Creatinine 1.45 mg/dL 0.50 - 09/25 [facility] Lvl 1.40 /2015 [facility] CHEM PANEL A/G Ratio 0.8 0.7 - 1.6 09/25 [facility] CHEM PANEL Globulin 3.6 g/dL 2.7 - 4.2 09/25 [facility] CHEM PANEL AGAP 13.8 meq/L 10.0 - 09/[address] [facility] CHEM PANEL B/C Ratio 17 6 - 25 09/25 [facility] HEMATOLOGY INR 1.08 0.85 - 09/[address] [place] [address] [facility] HEMATOLOGY PT 14.2 s 12.0 - 09/[address] [facility] HEMATOLOGY PTT 33.1 s 22.9 - 09/[address] [place] [address] [facility] HEMATOLOGY RDW 13.2 % 11.5 - 09/[address] [place] [address] [facility] HEMATOLOGY Platelet 219 K/CMM 133 - 450 09/25 [facility] HEMATOLOGY MPV 7.9 fL 7.4 - 10.4 09/25 [facility] HEMATOLOGY MCH 29.5 pg 27.0 - 09/[address] [facility] HEMATOLOGY MCHC 34.4 g/dL 32.0 - 09/[address] [facility] HEMATOLOGY MCV 85.6 fL 80.0 - 09/[address] [place] [address] [facility] HEMATOLOGY WBC 9.7 K/CMM 3.7 - 10.4 09/25 [facility] HEMATOLOGY RBC 4.32 M/CMM 4.70 - 09/[address] [place] [address] [facility] HEMATOLOGY Hgb 12.7 g/dL 14.0 - 09/25 [facility] [address] [facility] HEMATOLOGY Hct 36.9 % 42.0 - 09/[address] [place] [address] [facility] HEMATOLOGY Segs-Bands # 6.1 K/CMM 1.5 - 8.1 09/25 [facility] HEMATOLOGY Lymphocytes 2.6 K/CMM 1.0 - 5.5 09/25 [facility] # /2016 [facility] HEMATOLOGY Monocytes # 0.8 K/CMM 0.0 - 0.8 09/25 [facility] HEMATOLOGY Basophils # 0.1 K/CMM 0.0 - 0.2 09/25 [facility] /2015 [facility] HEMATOLOGY Eosinophils 0.2 K/CMM 0.0 - 0.5 09/25 [facility] # /2016 [facility] HEMATOLOGY Monocytes 8.0 % 2.0 - 12.0 09/25 [facility] HEMATOLOGY Eosinophils 2.0 % 0.0 - 4.0 09/25 [facility] HEMATOLOGY Basophils 0.9 % 0.0 - 1.0 09/25 [facility]2015 [facility] HEMATOLOGY Lymphocytes 26.5 % 20.0 - 09/25 [facility] [address] [facility] HEMATOLOGY Segs 62.6 % 45.0 - 09/25 [facility] [address] [facility] Nephrostomy Nephrostomy EXAM: PERCUTANEOUS LEFT NEPHROSTOGRAM 09/25 - [facility] tube tube /2015 - Medical exchange VR exchange VR This report was dictated by a Rn Home Care/Fellow. I have personally reviewed the images as Center well as the Resident's interpretation and agree with the findings. HISTORY: 76 years old Male with bilateral ureteral obstruction by the prostate. Had bilateral percutaneous nephrostomy tubes placed on 08/29/2016. Reported that 2 days ago the left nephrostomy tube stopped draining. Read by: Issac Escoto MD Resident: Issac Escoto MD Dictated Date/time: 09/25/16 16:38 FACULTY: Dr. Allen Electronically Signed by: Martín Allen MD 09/25/16 20:35 FINAL REPORT RESIDENT/FELLOW/ROTATING EQUIPMENT SPECIALIST: Dr. Escoto SUPERVISION: Level 1 Direct supervision: The supervising provider is physically present with the patient during the procedure. ANESTHESIA/SEDATION: None PHYSICIAN SUPERVISED ANESTHESIA TIME: N/A SPECIMEN: None DRAINS: None ESTIMATED BLOOD LOSS: None COMPLICATIONS: None immediate FLUOROSCOPY TIME: 0.2 min RADIATION DOZE: 0.4 mGy PROCEDURE: After the risks, benefits, and alternatives of the procedure were explained to the patient, verbal and written consent was obtained and a copy was placed on the chart. Patient was brought to the angiography suite and a time -out was performed. The patient was positioned prone. Tight Barrel Inspector radiographs demonstrated the nephrostomy tube in the region of the renal pelvis. A small amount of contrast was then injected through the nephrostomy tube which was widely patent. Contrast could b e seen filling the renal pelvis and extending down the ureter. There is persistent obstruction of the distal ureter without emptying into the bladder. The nephrostomy tube was flushed with sterile saline and reconnected to bag drainage. FINDINGS: 1. Widely patent left percutaneous nephrostomy tube. No need for exchange at this time. 2. Persistent distal left ureteral obstruction. IMPRESSION: Since the left percutaneous nephrostomy tube was widely patent and draining urine, no exchange was performed. FOLLOW-UP RECOMMENDATIONS: 1. Patient will need to follow up with Dr. Allen interventional radiology clinic in one month. The number for the interventional radiology clinic is [phone]. 2. The patient will need to flush the nephrostomy tubes with 10 mL of sterile saline twice daily to maintain patency. CVC insert CVC insert STUDY: VIR imaging guided port placement 08/29 [place] tunnel tunnel /2016 - Medical w/-w/o w/-w/o Center port/pump port/pump age 5+ yrs age 5+ yrs DATE: 08/29/2016 12:24 PM BREAKFAST BAR ATTENDANT Read by: Gerald Pagan MD VR VR Dictated Date/time: 08/29/16 14:56 Electronically Signed by: Gerald Pagan MD 08/29/16 15:00 FINAL REPORT INDICATION(S): Venous Access. Patient requires long-term IV access for chemotherapy PROCEDURE(S): .The right IJ vein was found to be patent and compressible on ultrasound, with image sent to PACS. Direct ultrasound guidance was utilized for venipuncture of the right IJ vein, with image sent to PACS. Chest neck sterilely prepped and draped. 1% lidocaine with epinephrine infiltrated over chest wall neck. Right internal jugular vein was entered with a 20-gauge needle over 0.018 inch wir e 5-S[place] Arabian dilator placed. Skin incision made there. Lidocaine in the area previously administered over the chest wall head incision made in the port pocket placed with blunt dissection. Hemostasis was observed in the pocket flushed with the a dilute gentamicin solution. Port placed in the pocket and catheter tunneled from chest wall the neck. Catheter cut to length. 5-S[place] Arabian sheath exchanged for the peel-away shift sheath over wire and the catheter passed atrial caval junction using direct fluoroscopic guidance. Neck incision closed with 4-0 Vicryl and port pocket closed with double layer 3-0 Vicryl, deep interrupted and superficial running LOCOMOTIVE ENGINEER ELECTRIC: Ej ROTATING EQUIPMENT SPECIALIST(S): CONSENT: Written consent obtained after discussing the indications, procedure, potential benefits, alternatives and risks SEDATION/PAIN CONTROL: Moderate conscious sedation was administered by a dedicated nurse under my supervision. There was continuous monitoring of BP, pulse and oxygen saturation.. Sedation time minutes. COMPLICATIONS: none ESTIMATED BLOOD LOSS: Minimal FLUOROSCOPIC TIME: 0.1 minutes RADIATION DOSE: 1.4 mGy CONTRAST VOLUME: mL FINDINGS: Port placed right IJ with tip at atrial caval junction on final image. There is a right chest port. There is no pneumothorax and the lungs are clear on the chest chest on the film IMPRESSION: Placed right IJ port PLAN/FOLLOW UP: Port okay to use Dr. Pagan, IR Attending, was present for the procedure. Nephrostomy Nephrostomy Bilateral percutaneous nephrostomy tube placement imaging guided 08/29 - [facility] drain perc drain perc /2015 - Medical bilateral bilateral VR Center VR DATE: 08/29/2016 12:24 PM BREAKFAST BAR ATTENDANT Read by: Gerald Pagan MD Dictated Date/time: 08/29/16 14:49 Electronically Signed by: Gerald Pagan MD 08/29/16 14:53 FINAL REPORT INDICATION(S): Hyrdonephrosis. From a large prostate PROCEDURE(S) PERFORMED: Is placed prone table. The back was sterilely prepped and draped widely. 1% lidocaine was infiltrated over the left flank for local anesthesia. Using direct ultrasound guidance w ith images in the PACS an inferior pole calyx was entered with an 18-gauge needle over 0.035 inch wire 10-S[place] Arabian cope locking loop nephrostomy catheter was placed and sutured to the skin with 2-0 Prolene. Following this the right side was addressed in similar manner. However he did enter an upper pole calyx on the 1st ultrasound-guided needle placement or injected contrast and redirected over a new anest hetized placement 1% lidocaine. A midpole calyx. Over 0.035 inch Bentson wire a 10-S[place] Arabian cope locking loop nephrostomy tube was placed and again the loop was coiled in the renal pelvis and the catheter sutured in 2-0 Prolene. Direct fluoroscopic ultrasound guidance were used for both procedures LOCOMOTIVE ENGINEER ELECTRIC: Ej ROTATING EQUIPMENT SPECIALIST(S): CONSENT: Written consent obtained after discussing the indications, procedure, potential benefits, alternatives and risks SEDATION/PAIN CONTROL: Moderate conscious sedation was administered by a dedicated nurse under my supervision. There was continuous monitoring of BP, pulse and oxygen saturation. Sedation time minutes. FINDINGS: Bilateral percutaneous nephrostomy tubes placed. There are good position. The left one is in inferior pole calyx in the right is a midpole calyx. Moderate hydronephrosis is present bilaterally COMPLICATIONS: None ESTIMATED BLOOD LOSS: Minimal FLUOROSCOPIC TIME: Or 0.4 minutes RADIATION DOSE: 86.3 mGy CONTRAST VOLUME: None intravascular mL IMPRESSION: Bilateral percutaneous nephrostomy tubes placed PLAN/FOLLOW UP: Dr. Gerald Pagan MD, IR Attending, was present for the procedure. Prostate wo Prostate wo EXAM: MR PELVIS WITHOUT CONTRAST 08/27 - [facility] contrast contrast MRI /2015 - [facility] This report was dictated by a Rn Home Care/Fellow. I have personally reviewed the images as well as the Resident's interpretation and agree with the findings. DATE: 08/27/2016 7:28 PM BREAKFAST BAR ATTENDANT Read by: Rosetta Rosario MD Resident: Rosetta Rosario MD Dictated Date/time: 08/27/16 11:08 Electronically Signed by: Tomy Bertrand MD 08/27/16 16:32 FINAL REPORT INDICATION: C61 Malignant neoplasm of prostate ADDITIONAL INFORMATION: Known prostate cancer, treated with radiation therapy in 2003 COMPARISON: None. TECHNIQUE: TECHNIQUE: Multiplanar, multisequence acquisition of the prostate without intravenous contrast. Axial, sagittal and coronal reconstructions. The study was transferred to work station for post processing. Evaluation is limited secondary to lack of contrast administration. FINDINGS: Image quality: Satisfactory. There is a 2.7 x 2.6 x 2.1 cm masslike infiltrating tumor at the urethrovesicular junction (series 801, image 16 and series 901, image 10) which is diffusely T2 hypointense and also demonstrates corresp onding restriction on diffusion-weighted imaging. Seminal vesicles: There is bilateral encasement the seminal vesicles by the infiltrating tumor which demonstrate diffuse T2 hypointensity and corresponding restricted diffusion. Bladder: The above-mentioned mass also infiltrates into the posterior bladder wall at the bladder base with irregular wall thickening and encasement of the bilateral ureterovesicular junctions (series 8 01, image 25) with partially visualized mild hydroureter noted bilaterally. Lymph nodes: Normal. Bones: No suspicious lesions seen. IMPRESSION: Findings suspicious for locally recurrent disease with 2.7 cm masslike infiltrating tumor near the level of the urethrovesicular junction demonstrating extension to the bladder base, seminal vesicles an d encasing the bilateral ureterovesicular junctions resulting in mild hydroureter. Bone scan Bone scan NM EXAM: NM Bone Joint Imaging Whole Body 08/20 [facility] - [place] This report was dictated by a [facility]Fellow. I have personally reviewed the images as well as the Resident's interpretation and agree with the findings. DATE: 08/20/2016 8:45 AM BREAKFAST BAR ATTENDANT Read by: Michael Arnold MD Resident: Michael Arnold MD Dictated Date/time: 08/20/16 11:51 Electronically Signed by: Farrukh Dyer MD 08/20/16 12:46 FINAL REPORT INDICATION: Prostate cancer, restaging. COMPARISON: Computed tomography scan of same day TECHNIQUE: Approximately 2 hours delayed whole body images were obtained after intravenous administration of 26 mCi of Tc-99m MDP. Additional static images of the chest and the pelvis were obtained. FINDINGS: Focal tracer uptake in the right sternoclavicular joint, right shoulder, lower T-spine, both sides of L5 facets, right acetabulum, hands, right knee and feet is consistent with degenerative os teoarthritis. No focal abnormal tracer uptake is seen in skeleton to suggest bone metastasis. IMPRESSION: No evidence of bony metastases. Abdomen/Pel Abdomen/Pelv EXAM: CT ABDOMEN AND PELVIS WITH CONTRAST 08/20 [facility] vis w IV is w IV /2015 - [place] contrast CT contrast CT DATE: 08/20/2016 8:41 AM BREAKFAST BAR ATTENDANT Read by: Yogesh Medellin MD Dictated Date/time: 08/20/16 10:39 Electronically Signed by: Yogesh Medellin MD 08/20/16 10:55 FINAL REPORT INDICATION: C61 Malignant neoplasm of prostate ADDITIONAL INFORMATION: None. COMPARISON: None. TECHNIQUE: Volumetric CT acquisition of the abdomen and pelvis after the intravenous administration contrast. Axial, coronal and sagittal reconstructions. IV contrast: 100 mL of Visipaque 300 Oral contrast: 450 mL of Volumen DLP: 1746 mGy FINDINGS: Lines and tubes: None. Lower thorax: Please see chest CT from today for evaluation of thorax. Liver: Normal. Biliary tree: No intra- or extrahepatic biliary ductal dilation. Gallbladder: Normal. No CT evidence of gallstones. Normal gallbladder wall thickness. Pancreas: Normal. Spleen: Normal. Adrenals: Normal. Kidneys and ureters: A spherical simple cyst measuring 2 cm in diameter extends exophytically from the lower pole of the right kidney. A simple cyst measuring 3.6 x 3.6 x 3.4 cm extends exophytically and anteriorly from the upper pole of the left kidney. A 1.7 cm cyst extends exophytically and laterally from the mid polar region of the left kidney. An 11.1 mm simple cyst extends inferiorly from the lower pole of the left kidney. There is no solid mass lesion in either kidney. There is moderate pelviectasis bilaterally with minimal caliectasis. The ureters are minimally prominent bilaterally to the trigone. A nonoccluding stone measuring 4.6 mm is present in the midportion of the left renal collecting system. Bladder: The bladder is moderately well distended with some irregular thickening of the bladder base near the prostate. Reproductive organs: The prostate forms a mass impression on the bladder base. There is a defect in the prostate suggesting prior transurethral resection of the prostate for which correlation is needed. Despite this, the mass impression on the bladder base is at least mildly prominent and may include both ureteral orifices. Gastrointestinal tract: The stomach and small bowel are unremarkable. There are scattered colonic diverticula without evidence for diverticulitis. Appendix: Normal Peritoneum and retroperitoneum: No lymphadenopathy, ascites or free air. No pelvic sidewall masses. Lymph nodes: Normal. Vasculature: There are scattered arterial calcifications with no evidence for aneurysm. Bones: Mild degenerative changes are present in the visualized thoracic and lumbar spine with osteophyte formation. There is mildly prominent disc space loss at L5-S1. No suspicious lytic or blastic lesion is present. Soft tissues: Normal IMPRESSION: 1. There is mild mass impression on the bladder base even though there appears to be a TURP defect in the prostate. This mass effect on the bladder base may be be the cause for mildly prominent hydroure ter and distention of the renal pelves bilaterally. If possible, comparison with prior cross-sectional images would be very helpful in evaluating the appearance of the bladder base, prostate and renal collecting systems. 2. There are multiple simple cysts in the kidneys bilaterally. 3. Diverticulosis without evidence for diverticulitis. 4. Mild degenerative changes are present in the spine. Chest w Chest w EXAM: CT CHEST WITH CONTRAST 08/20 - [facility] contrast CT contrast CT [place] DATE: 08/20/2016 8:41 AM BREAKFAST BAR ATTENDANT Read by: Steve Wade MD Dictated Date/time: 08/20/16 09:17 Electronically Signed by: Steve Wade MD 08/20/16 09:32 FINAL REPORT INDICATION: C61 Malignant neoplasm of prostate TECHNIQUE: Volumetric CT acquisition of the chest, following intravenous contrast. Axial, sagittal and coronal reconstructions. Axial MIP reconstructions are created at the acquisition workstation. IV Contrast: The 100 mL of Visipaque 320. DLP: 1746 mGy-cm for the CT chest, abdomen and pelvis. COMPARISON: No available prior chest CTs for comparison. FINDINGS: Lines and Tubes: None. Lower Neck: The visible portions or the lower neck and thyroid are unremarkable. Heart and Great Vessels: No cardiomegaly. No pericardial effusion. Normal size of the ascending aorta with no aortic atherosclerotic disease. No coronary calcifications. Normal size of the main pulmonary artery. No central pulmonary thromboembolism. Lymph Nodes: Few calcified/partially calcified left hilar lymph nodes noted. Several subcentimeter mediastinal lymph nodes are noted. No hilar, mediastinal, axillary or internal mammary lymphadenopathy by CT size criteria. Lungs: Minimal dependent atelectatic changes. Few scattered tiny calcified nodules seen in both lungs. Otherwise, both lungs are Clear, without consolidation or nodules. Pleura: No pleural effusion or pneumothorax. Upper abdomen: Please refer to separate report of the concomitantly performed CT abdomen and pelvis for findings below the diaphragm. Bones and Soft Tissues: Degenerative changes of the thoracic spine. IMPRESSION: 1. No metastatic lung disease. No metastatic osseous lesion in the visualized bones. 2. Findings consistent with remote granulomatous lung disease. 3. Please refer to separate report of the concomitantly performed CT abdomen and pelvis for findings below the diaphragm. RECOMMENDATIONS: None. Vital Signs Vital Sign Value Date Comments Source Height 165.1 cm 02/24/2017 [facility] BMI Calculated 33.68 02/24/2017 [facility] Weight 91.818 02/24/2017 [facility] Temperature Oral (F) 98.4 F 02/24/2017 [facility] Systolic (mm Hg) 133 02/24/2017 [facility] Diastolic (mm Hg) 75 02/24/2017 [facility] Respitory Rate 16 02/24/2017 [facility] Heart Rate 67 02/24/2017 [facility] Weight 91.818 01/27/2017 [facility] BMI Calculated 33.68 01/27/2017 [facility] Height 165.1 cm 01/27/2017 [facility] Heart Rate 65 01/27/2017 [facility] Temperature Oral (F) 97.8 F 01/27/2017 [facility] Respitory Rate 16 01/27/2017 [facility] Systolic (mm Hg) 128 01/27/2017 [facility] Diastolic (mm Hg) 80 01/27/2017 [facility] Respitory Rate 17 01/14/2017 [facility] Systolic (mm Hg) 128 01/14/2017 [facility] Diastolic (mm Hg) 83 01/14/2017 [facility] Systolic (mm Hg) 119 01/14/2017 [facility] Diastolic (mm Hg) 81 01/14/2017 [facility] Respitory Rate 20 01/14/2017 [facility] Systolic (mm Hg) 124 01/14/2017 [facility] Diastolic (mm Hg) 78 01/14/2017 [facility] Respitory Rate 18 01/14/2017 [facility] Weight 90.909 01/14/2017 [facility] BMI Calculated 29.6 01/14/2017 [facility] Height 175.26 cm 01/14/2017 [facility] Weight 92.545 12/04/2016 [facility] Temperature Oral (F) 97.7 F 12/04/2016 [facility] Respitory Rate 16 12/04/2016 [facility] Heart Rate 73 12/04/2016 [facility] Systolic (mm Hg) 99 12/04/2016 [facility] Diastolic (mm Hg) 60 12/04/2016 [facility] Height 165.1 cm 12/04/2016 [facility] BMI Calculated 33.95 12/04/2016 [facility] BMI Calculated 33.85 11/25/2016 [facility] Weight 92.273 11/25/2016 [facility] Height 165.1 cm 11/25/2016 [facility] Systolic (mm Hg) 107 11/25/2016 [facility] Diastolic (mm Hg) 69 11/25/2016 [facility] Heart Rate 76 11/25/2016 [facility] Temperature Oral (F) 98.3 F 11/25/2016 [facility] Respitory Rate 18 11/25/2016 [facility] BMI Calculated 33.15 11/06/2016 [facility] Height 165.1 cm 11/06/2016 [facility] Weight 90.364 11/06/2016 [facility] Systolic (mm Hg) 117 11/06/2016 [facility] Diastolic (mm Hg) 80 11/06/2016 [facility] Respitory Rate 18 11/06/2016 [facility] Heart Rate 80 11/06/2016 [facility] Temperature Oral (F) 97.7 F 11/06/2016 [facility] Height 165.1 cm 10/14/2016 [facility] BMI Calculated 34.59 10/14/2016 [facility] Weight 94.273 10/14/2016 [facility] Temperature Oral (F) 98.1 F 10/14/2016 [facility] Respitory Rate 16 10/14/2016 [facility] Heart Rate 54 10/14/2016 [facility] Systolic (mm Hg) 144 10/14/2016 [facility] Diastolic (mm Hg) 83 10/14/2016 [facility] BMI Calculated 33.85 10/08/2016 [facility] Height 165.1 cm 10/08/2016 [facility] Weight 92.273 10/08/2016 [facility] Respitory Rate 18 10/08/2016 [facility] Heart Rate 67 10/08/2016 [facility] Temperature Oral (F) 97.4 F 10/08/2016 [facility] Systolic (mm Hg) 111 10/08/2016 [facility] Diastolic (mm Hg) 68 10/08/2016 [facility] Weight 92.273 10/07/2016 [facility] BMI Calculated 33.85 10/07/2016 [facility] Height 165.1 cm 10/07/2016 [facility] Systolic (mm Hg) 115 10/07/2016 [facility] Diastolic (mm Hg) 69 10/07/2016 [facility] Heart Rate 58 10/07/2016 [facility] Respitory Rate 18 10/07/2016 [facility] Temperature Oral (F) 98.0 F 10/07/2016 [facility] Systolic (mm Hg) 105 09/25/2016 [facility] Diastolic (mm Hg) 58 09/25/2016 [facility] Respitory Rate 18 09/25/2016 [facility] Temperature Oral (F) 97.8 F 09/25/2016 [facility] Temperature Oral (F) 99.1 F 09/25/2016 [facility] Respitory Rate 18 09/25/2016 [facility] Heart Rate 66 09/25/2016 [facility] Systolic (mm Hg) 142 09/25/2016 [facility] Diastolic (mm Hg) 77 09/25/2016 [facility] BMI Calculated 29.3 09/25/2016 [facility] Height 175.26 cm 09/25/2016 [facility] Weight 90 09/25/2016 [facility] Systolic (mm Hg) 127 09/25/2016 [facility] Diastolic (mm Hg) 76 09/25/2016 [facility] Respitory Rate 18 09/25/2016 [facility] Heart Rate 63 09/25/2016 [facility] Temperature Oral (F) 97.0 F 09/25/2016 [facility] Weight 90 09/25/2016 [facility] BMI Calculated 29.3 09/25/2016 [facility] Height 175.26 cm 09/25/2016 [facility] Heart Rate 69 09/25/2016 [facility] BMI Calculated 33.68 09/08/2016 [facility] Weight 91.818 09/08/2016 [facility] Height 165.1 cm 09/08/2016 [facility] Respitory Rate 16 09/08/2016 [facility] Temperature Oral (F) 98.1 F 09/08/2016 [facility] Heart Rate 66 09/08/2016 [facility] Systolic (mm Hg) 124 09/08/2016 [facility] Diastolic (mm Hg) 79 09/08/2016 [facility] Systolic (mm Hg) 139 08/29/2016 [facility] Diastolic (mm Hg) 67 08/29/2016 [facility] Systolic (mm Hg) 131 08/29/2016 [facility] Diastolic (mm Hg) 82 08/29/2016 [facility] Respitory Rate 18 08/29/2016 [facility] Systolic (mm Hg) 137 08/29/2016 [facility] Diastolic (mm Hg) 74 08/29/2016 [facility] Respitory Rate 22 08/29/2016 [facility] Respitory Rate 18 08/29/2016 [facility] BMI Calculated 31.22 08/29/2016 [facility] Weight 95.909 08/29/2016 [facility] Height 175.26 cm 08/29/2016 [facility] Height 167.6 cm 08/27/2016 [facility] BMI Calculated 33.93 08/27/2016 [facility] Weight 95.318 08/27/2016 [facility] Temperature Oral (F) 97.4 F 08/27/2016 [facility] Respitory Rate 18 08/27/2016 [facility] Heart Rate 62 08/27/2016 [facility] Systolic (mm Hg) 145 08/27/2016 [facility] Diastolic (mm Hg) 83 08/27/2016 [facility] BMI Calculated 34.19 08/25/2016 [facility] Weight 96.091 08/25/2016 [facility] Height 167.64 cm 08/25/2016 [facility] Systolic (mm Hg) 141 08/25/2016 [facility] Diastolic (mm Hg) 87 08/25/2016 [facility] Heart Rate 66 08/25/2016 [facility] Respitory Rate 18 08/25/2016 [facility] Temperature Oral (F) 98.2 F 08/25/2016 [facility] Height 167.64 cm 08/04/2016 [facility] BMI Calculated 33.58 08/04/2016 [facility] Weight 94.364 08/04/2016 [facility] Temperature Oral (F) 97.8 F 08/04/2016 [facility] Respitory Rate 20 08/04/2016 [facility] Systolic (mm Hg) 133 08/04/2016 [facility] Diastolic (mm Hg) 79 08/04/2016 [facility] Heart Rate 69 08/04/2016 [facility] Encounters Location Location Encounter Encounter Reason Attending ADM DC Status Source Details Type Number For Provider Date Date Visit [facility] Recurring [id number] Wan 08/04 09/03 [place] [facility] 0 [facility] Oncology Center [facility] Outpt Diag [id number] Wan 08/20 08/21 [facility] Outpt Diag [id number] Wan 08/27 08/28 [facility] Bed[facility] [id number] Wan 08/29 08/29 [place] [facility] 4 [facility] Phone [id number] 09/08 09/10 2.16.840 Michael Message .[phone] Oncology 3.3.615. [facility] Recurring [id number] Wan 09/08 10/08 [place] 1 [facility] Oncology [facility] Observation [id number] Yogesh 09/25 09/26 [place] 8 [facility] Phone [id number] 09/30 10/02 2.16.840 Michael Message .[id number] Oncology 3.3.615. [facility] Recurring [id number] Wan 10/08 11/07 [place] [facility] 2 [facility] Oncology [facility] Recurring [id number] Wan 11/19 12/19 [place] 3 [facility] Outpt Diag [id number] Wan 11/19 11/20 [facility] Outpt Diag [id number] Wan 11/19 11/20 [facility] 3 [facility] Phone [id number] 12/03 12/05 2.16.840 [place] Message .[id number] Oncology 3.3.615. [facility] 95 [facility] Outpt Diag [id number] Jody 01/01 01/02 [facility] 4 [facility] [place] [facility] Bedded [id number] Wan 01/14 01/14 [facility] [place] [facility] 1 [facility] Recurring [id number] Wan 01/27 02/26 [facility] [place] 4 [facility] Oncology [facility] Procedures Procedure Code Date Perfomer Comments Source Colonoscopy [id number] 01/27/2016 [facility] [place] Colonoscopy [id number] 01/27/2016 [facility] Colonoscopy [id number] 01/27/2016 [id number] Colonoscopy [id number] 01/27/2016 [facility] Colonoscopy [id number] 01/27/2016 [facility] Repair of [id number] 09/28/2010 [facility] umbilical hernia Michael Repair of [id number] 09/28/2010 [facility] Repair of [id number] 09/28/2010 [id number] umbilical hernia [id number] Repair of [id number] 09/28/2010 [facility] umbilical hernia [facility] Repair of [id number] 09/28/2010 [facility] umbilical hernia [facility] High intensity [id number] 03/28/2000 [facility] focused ultrasound [place] ablation using ultrasound guidance High intensity [id number] 03/28/2000 [facility] ablation using ultrasound guidance High intensity [id number] 03/28/2000 [id number] focused ultrasound [id number] ablation using ultrasound guidance High intensity [id number] 03/28/2000 [facility] focused ultrasound [facility] ablation using ultrasound guidance High intensity [id number] 03/28/2000 [facility] focused ultrasound [facility] ablation using Imaging ultrasound guidance Radiation therapy [id number] 09/28/1992 [facility] [place] Radiation therapy [id number] 09/28/1992 [facility] Radiation therapy [id number] 09/28/1992 [id number] care [id number] Radiation therapy [id number] 09/28/1992 [facility] Radiation therapy [id number] 09/28/1992 [facility] Nephrostomy [id number] [facility] Nephrostomy [id number] Nephrostomy [id number] DARVIN [facility] Nephrostomy [id number] DARVIN Potts [facility] Nephrostomy [id number] DARVIN Rodriguez
[2018-08-27] MEDS ORDERED: FENTANYL CITR 100 MCG/2 ML ONE (23:25)
[2018-08-27 23:50] LABS: Absolute Lymphocytes (CBC) 0.7 K/uL (0.7-4.9); Absolute Monocytes 0.5 K/uL (0.1-1.3); Absolute Neutrophil 10.9 K/uL (1.8-8.0); Basophils % 0.4 % (0-1.3); Eosinophils % 0.3 % (0-4.4); Hematocrit 33.6 % (39.6-49.0); Lymphocytes % 5.5 % (15.3-44.8); MCH 26.7 pg (27.0-35.0); MCV 80.6 fL (80-100); MPV 7.6 fL (7.6-11.3); Monocytes % 3.9 % (3.3-12.3); RBC Red Blood Cell Count 4.17 M/uL (4.33-5.43)
[2018-08-27 23:51] LABS: Protime INR 1.44
[2018-08-28 00:27] LABS: ALT/SGPT 22 U/L (12-78); AST/SGOT 53 U/L (15-37); Albumin 2.4 g/dL (3.4-5.0); Alkaline Phosphatase 963 U/L (45-117); BUN Blood Urea Nitrogen 16 mg/dL (7-18); Bicarbonate 23 mmol/L (21-32); Bilirubin Direct 0.1 mg/dL (0-0.2); Bilirubin Total 0.3 mg/dL (0.2-1.0); Creatine Phosphokinase 91 U/L (39-308); Glucose Level 127 mg/dL (74-106); Lipase 90 U/L (73-393); Potassium 3.3 mmol/L (3.5-5.1); Protein, Total 6.9 g/dL (6.4-8.2); Sodium Level 139 mmol/L (136-145); Troponin (Emerg Dept Use Only) < 0.02 ng/mL (0.0-0.045)
[2018-08-28 00:32] LABS: Blood Morphology Comment NOT SEEN (NOT SEEN); Platelet Estimate ADEQ
[2018-08-28 00:43] LABS: Urine Bacteria LOADED /HPF (NONE SEEN); Urine Culture Reflex Order REFLEXED; Urine Yeast FEW (NONE SEEN); Urine Yeast with Hyphae PRESENT
[2018-08-28 00:45] LABS: Urine RBC 20-50 /HPF (NONE SEEN)
[2018-08-28 00:47] LABS: Urine Blood 2+ (NEG); Urine Glucose NEGATIVE (NEG); Urine Protein 2+ (NEG)
[2018-08-28] MEDS ORDERED: NA CHLORIDE 0.9% 50 ML IV ONE (01:45)
[2018-08-28] MEDS ORDERED: CEFOXITIN SODIUM 2 GM/VIAL ONE (01:45)
--- NOTE | 2018-08-28 02:22 | ER ---
Nurse's Notes [facility] Name: Christopher Kulkarni Age: 78 yrs Sex: Male : 1940 Arrival Date: 08/27/2018 Time: 21:52 Bed 19 Private MD: Diagnosis: colon obstruction Presentation: 08/27 21:52 Presenting complaint: EMS states: patient complains of constipation for the last 2-3 kr2 days with abdominal pain to LLQ that has progressively gotten worse. He reports he has tried an enema with no relief. Transition of care: patient was not received from another setting of care. Onset of symptoms was August 24, 2018. Risk Assessment: Do you want to hurt yourself or someone else? Patient reports no desire to harm self or others. Care prior to arrival: Medication(s) given: Normal saline infusion, 500 mL, zofran 4 mg. 21:52 Method Of Arrival: EMS: [facility] kr2 21:52 Acuity: JERICA 4 kr2 22:18 Initial Sepsis Screen: Does the patient meet any 2 criteria? No. Patient's initial kr2 sepsis screen is negative. Does the patient have a suspected source of infection? No. Patient's initial sepsis screen is negative. Triage Assessment: 22:08 General: Appears in no apparent distress. uncomfortable, well groomed, well developed, aj1 well nourished, Behavior is calm, cooperative, appropriate for age. Pain: Complains of pain in Left lower quadrant Pain radiates to abdomen Pain currently is 6 out of 10 on a pain scale. Quality of pain is described as aching, pressure, Pain began 2-3 days ago. Is continuous, Alleviated by nothing. EENT: Nares are clear bilaterally Oral mucosa is dry. Neuro: Level of Consciousness is awake, alert, obeys commands, Oriented to person, place, time, situation, Appropriate for age. Cardiovascular: Capillary refill < 3 seconds in bilateral fingers Patient's skin is warm and dry. Respiratory: Airway is patent Respiratory effort is even, unlabored, Respiratory pattern is regular, symmetrical. GI: Abdomen is round non-distended, Reports constipation, nausea. : Denies inability to void. Derm: Skin is intact, is healthy with good turgor, Skin is dry, Skin is pale, pink, Skin temperature is warm. Musculoskeletal: Circulation, motion, and sensation intact. Historical: - Allergies: 22:12 No Known Allergies; aj1 - Home Meds: 22:12 levothyroxine oral once daily [Active]; Simvastatin Oral nightly [Active]; Zytiga Oral aj1 [Active]; - PMHx: 22:12 High Cholesterol; Hyperlipidemia; Hypertension; Hypothyroidism; Prostate Cancer; aj1 - PSHx: 22:12 Hernia repair; aj1 22:13 Bilateral nephrostomy; aj1 - Immunization history:: Adult Immunizations up to date. - Social history:: Smoking status: Patient/guardian denies using tobacco. - Ebola Screening: : No symptoms or risks identified at this time. Screenin:18 Abuse screen: Denies threats or abuse. Denies injuries from another. Nutritional kr2 screening: No deficits noted. Tuberculosis screening: No symptoms or risk factors identified. Fall Risk Gait- Weak (10 pts.). Assessment: 22:14 General: Appears in no apparent distress. uncomfortable, well groomed, well developed, kr2 well nourished, Behavior is calm, cooperative, appropriate for age. Pain: Complains of pain in left lower quadrant Pain radiates to abdomen Pain currently is 6 out of 10 on a pain scale. Quality of pain is described as aching, pressure, tender, Pain began 2-3 days ago. Is continuous, Alleviated by nothing. Neuro: Level of Consciousness is awake, alert, obeys commands, Oriented to person, place, time, situation, Appropriate for age. Cardiovascular: Capillary refill < 3 seconds in bilateral fingers Patient's skin is warm and dry. Respiratory: Airway is patent Respiratory effort is even, unlabored, Respiratory pattern is regular, symmetrical. Respiratory: Breath sounds are clear bilaterally. the patient has mild shortness of breath. GI: Abdomen is round non-distended, Bowel sounds present X 4 quads. Abd is soft X 4 quads Abdomen is tender to palpation in right lower quadrant and left lower quadrant Reports constipation, nausea. : Bilateral nephrostomies, patient denies having any complications or concerns with nephrostomies. EENT: Nares are clear bilaterally Oral mucosa is dry. Derm: Skin is intact, is healthy with good turgor, Skin is dry, Skin is pale, pink, Skin temperature is warm. Musculoskeletal: Circulation, motion, and sensation intact. 23:00 Reassessment: Patient appears in no apparent distress at this time. Patient and/or kr2 family updated on plan of care and expected duration. Pain level reassessed. Patient is alert, oriented x 3, equal unlabored respirations, skin warm/dry/pink. Patient states feeling better. 08/28 00:15 Reassessment: Patient appears in no apparent distress at this time. Patient and/or kr2 family updated on plan of care and expected duration. Pain level reassessed. Patient is alert, oriented x 3, equal unlabored respirations, skin warm/dry/pink. Patient denies pain at this time. 00:45 Reassessment: came back from CT scan. no complaints made. awaiting for report. rr5 01:52 Reassessment: [id number] Jeovanny. rr5 02:50 Reassessment: Patient appears in no apparent distress at this time. Patient and/or rr5 family updated on plan of care and expected duration. Pain level reassessed. seen and examined the patient at bedside. Patient denies pain at this time. Patient states symptoms have improved. Vital Signs: 08/27 22:07 BP 130 / 56; Pulse 115; Resp 19; Temp 98.7; Pulse Ox 93% on R/A; Weight 82.55 kg; kr2 Height 5 ft. 7 in. (170.18 cm); Pain 6/10; 23:49 BP 113 / 59; Pulse 114; Resp 20; Pulse Ox 95% on 2 lpm NC; kr2 08/28 00:15 BP 114 / 54; Pulse 112; Resp 22; Pulse Ox 95% on 2 lpm NC; kr2 00:49 BP 129 / 64; Pulse 106; Resp 17; Pulse Ox 97% on 2 lpm NC; rr5 02:00 BP 109 / 65; Pulse 107; Resp 18; Pulse Ox 98% on 2 lpm NC; rr5 03:00 BP 105 / 52; Pulse 101; Resp 18; Pulse Ox 99% on 2 lpm NC; rr5 03:46 BP 121 / 77; Pulse 100; Resp 17; Temp 99.2; Pulse Ox 100% on 2 lpm NC; rr5 08/27 22:07 Body Mass Index 28.50 (82.55 kg, 170.18 cm) kr2 08/27 22:07 Patient placed on O2 \T\ 2 LPM via NC, Saturation up to 95% kr2 ED Course: 21:52 Patient arrived in ED. kr2 21:54 Triage completed. kr2 22:11 Adam Evans MD is Attending Physician. gs 22:13 Arm band placed on right wrist. aj1 22:14 Kayla Lechuga, CASIMIRO is Primary Nurse. kr2 22:18 Patient has correct armband on for positive identification. Bed in low position. Call kr2 light in reach. Side rails up X2. electronic device monitor on. Pulse ox on. NIBP on. Door closed. Noise minimized. Lights dimmed. Warm blanket given. Head of bed elevated. 23:40 Initial lab(s) drawn, by me, sent to lab. Maintain EMS IV. Dressing intact. Good blood kr2 return noted. Site clean \T\ dry. Gauge \T\ site: 18g RAC. 23:59 X-ray completed. Portable x-ray completed in exam room. Patient tolerated procedure sg4 well. 08/28 00:03 Urine Microscopic Only Sent. kr2 00:03 Urine collected: nephrostomy. kr2 00:[address] via stretcher. kw1 00:31 Notified ED physician of a critical lab result(s). band count of 23%. fc 00:35 CT completed. Patient tolerated procedure well. Patient moved back from CT. Patient kw1 moved back from CT. 02:22 David Claros MD is Hospitalizing Provider. gs 03:43 No provider procedures requiring assistance completed. Patient admitted, IV remains in rr5 place. Administered Medications: 08/27 23:20 Drug: NS 0.9% 1000 ml Route: IV; Rate: 1 bolus; Site: right antecubital; kr2 08/28 00:04 Follow up: Response: No adverse reaction; Pain is decreased; IV Status: Completed kr2 infusion 08/27 23:20 Drug: fentaNYL (PF) 50 mcg Route: IVP; Site: right antecubital; kr2 08/28 00:04 Follow up: Response: No adverse reaction; Pain is decreased kr2 01:45 Drug: cefOXitin 1 grams Route: IVPB; Infused Over: 30 mins; Site: right antecubital; rr5 02:15 Follow up: Response: No adverse reaction; IV Status: Completed infusion; IV Intake: [id number] Intake: 02:15 IV: 50ml; Total: 50ml. rr5 Outcome: 02:22 Discharge ordered by . 02:23 Decision to Hospitalize by Provider. 04:00 Admitted to Med/surg accompanied by nurse, via stretcher, with oxygen, Report called to rr5 vaughn 04:00 Condition: stable rr5 04:00 Instructed on the need for admit. 04:15 Patient left the ED. rr5 Signatures: Paty Arguello RN RN aj1 Alicia Phillip RN Adam Corea MD MD gs Reaves, Karey RN RN kr2 Nicole Valentine Susana 4 Talat Bates, RN RN rr5 Corrections: (The following items were deleted from the chart) 08/27 23:21 23:20 NS 0.9% 1000 ml IV at 1 bolus in left antecubital kr2 kr2 08/28 00:17 08/27 22:07 BP 130 / 56; Pulse 115bpm; Resp 19bpm; Pulse Ox 93% RA; Temp 98.7F; 82.55 kr2 kg; Height 5 ft. 7 in.; BMI: 28.5; Pain 6/10; aj1 08/28 00:17 08/27 23:49 BP 113 / 59; Pulse 114bpm; Resp 20bpm; Pulse Ox 95% RA; kr2 kr2
--- NOTE | 2018-08-28 02:24 | EDPHYS ---
Physician Documentation [facility] Name: Christopher Kulkarni Age: 78 yrs Sex: Male : 1940 Arrival Date: 08/27/2018 Time: 21:52 Bed 19 Private MD: ED Physician Adam Evans HPI: 08/28 02:09 This 78 yrs old Male presents to ER via EMS with complaints of Constipation, gs Abd Pain > 50 y/o. 02:09 Onset: The symptoms/episode began/occurred today. Associated signs and symptoms: gs Pertinent positives: nausea. The symptoms are described as crampy, sharp. Modifying factors: The symptoms are alleviated by nothing, the symptoms are aggravated by nothing. Severity of pain: At its worst the pain was severe in the emergency department the pain is unchanged. The patient has experienced similar episodes in the past, a few times. Historical: - Allergies: 08/27 22:12 No Known Allergies; aj1 - Home Meds: 22:12 levothyroxine oral once daily [Active]; Simvastatin Oral nightly [Active]; Zytiga Oral aj1 [Active]; - PMHx: 22:12 High Cholesterol; Hyperlipidemia; Hypertension; Hypothyroidism; Prostate Cancer; aj1 - PSHx: 22:12 Hernia repair; aj1 22:13 Bilateral nephrostomy; aj1 - Immunization history:: Adult Immunizations up to date. - Social history:: Smoking status: Patient/guardian denies using tobacco. - Ebola Screening: : No symptoms or risks identified at this time. ROS: 08/28 02:09 All other systems are negative. gs Exam: 02:09 Head/Face: Normocephalic, atraumatic. Eyes: Pupils equal round and reactive to light, gs extra-ocular motions intact. Lids and lashes normal. Conjunctiva and sclera are non-icteric and not injected. Cornea within normal limits. Periorbital areas with no swelling, redness, or edema. ENT: Nares patent. No nasal discharge, no septal abnormalities noted. Tympanic membranes are normal and external auditory canals are clear. Oropharynx with no redness, swelling, or masses, exudates, or evidence of obstruction, uvula midline. Mucous membranes moist. Neck: Trachea midline, no thyromegaly or masses palpated, and no cervical lymphadenopathy. Supple, full range of motion without nuchal rigidity, or vertebral point tenderness. No Meningismus. Chest/axilla: Normal chest wall appearance and motion. Nontender with no deformity. No lesions are appreciated. 02:09 Respiratory: Lungs have equal breath sounds bilaterally, clear to auscultation and percussion. No rales, rhonchi or wheezes noted. No increased work of breathing, no retractions or nasal flaring. Back: No spinal tenderness. No costovertebral tenderness. Full range of motion. MS/ Extremity: Pulses equal, no cyanosis. Neurovascular intact. Full, normal range of motion. Neuro: Awake and alert, GCS 15, oriented to person, place, time, and situation. Cranial nerves II-XII grossly intact. Motor strength 5/5 in all extremities. Sensory grossly intact. Cerebellar exam normal. Normal gait. 02:09 Constitutional: The patient appears alert, awake, uncomfortable. 02:09 Cardiovascular: Rate: tachycardic, Rhythm: regular, Pulses: no pulse deficits are appreciated. 02:09 ECG was reviewed by the Attending Physician. 02:09 Abdomen/GI: Palpation: moderate abdominal tenderness, in all quadrants, rebound tenderness, is not appreciated. 02:09 Skin: Appearance: Color: pale. Vital Signs: 08/27 22:07 BP 130 / 56; Pulse 115; Resp 19; Temp 98.7; Pulse Ox 93% on R/A; Weight 82.55 kg; kr2 Height 5 ft. 7 in. (170.18 cm); Pain 6/10; 23:49 BP 113 / 59; Pulse 114; Resp 20; Pulse Ox 95% on 2 lpm NC; kr2 12 00:15 BP 114 / 54; Pulse 112; Resp 22; Pulse Ox 95% on 2 lpm NC; kr2 00:49 BP 129 / 64; Pulse 106; Resp 17; Pulse Ox 97% on 2 lpm NC; rr5 02:00 BP 109 / 65; Pulse 107; Resp 18; Pulse Ox 98% on 2 lpm NC; rr5 03:00 BP 105 / 52; Pulse 101; Resp 18; Pulse Ox 99% on 2 lpm NC; rr5 03:46 BP 121 / 77; Pulse 100; Resp 17; Temp 99.2; Pulse Ox 100% on 2 lpm NC; rr5 08/27 22:07 Body Mass Index 28.50 (82.55 kg, 170.18 cm) [facility] 08/27 22:07 Patient placed on O2 \T\ 2 LPM via NC, Saturation up to 95% [facility] MDM: 23:10 Patient medically screened. 08/28 02:09 Differential diagnosis: bowel obstruction, diverticulitis, pancreatitis, urinary tract gs infection. Data reviewed: vital signs, nurses notes. Response to treatment: the patient's symptoms have mildly improved after treatment, and as a result, I will admit patient. Physician consultation: Freddie Marcial MD. 08/27 23:12 Order name: Basic Metabolic Panel 08/27 23:12 Order name: Blood Culture Adult (2) 08/27 23:12 Order name: CBC with Diff 08/27 23:12 Order name: CPK 08/27 23:12 Order name: Lactate 08/27 23:12 Order name: LFT's 08/27 23:12 Order name: Lipase 08/27 23:12 Order name: Procalcitonin 08/27 23:12 Order name: Protime (+inr) 08/27 23:12 Order name: Troponin (emerg Dept Use Only) 08/27 23:12 Order name: Urine Microscopic Only 08/27 23:51 Order name: CBC with Automated Diff; Complete Time: 01:20 EDMS 08/27 23:52 Order name: Protime (+INR); Complete Time: 01:20 EDMS 08/28 00:03 Order name: Urine Dipstick--Ancillary (enter results) [facility] 08/27 23:12 Order name: Chest Single View XRAY 08/27 23:12 Order name: CT Stone Protocol 08/28 00:16 Order name: Lactate; Complete Time: 01:20 EDMS 08/28 00:28 Order name: Basic Metabolic Panel; Complete Time: 01:20 EDMS 08/28 00:28 Order name: Liver (Hepatic) Function; Complete Time: 01:20 EDMS 08/28 00:28 Order name: Creatine Phosphokinase; Complete Time: 01:20 EDMS 08/28 00:28 Order name: Troponin (Emerg Dept Use Only); Complete Time: 01:20 EDMS 08/28 00:28 Order name: Lipase; Complete Time: 01:20 EDMS 08/28 00:32 Order name: Manual Differential; Complete Time: 01:20 EDMS 08/28 00:46 Order name: Urine Microscopic Only; Complete Time: 01:20 EDMS 08/28 00:47 Order name: Urine Dipstick-Ancillary; Complete Time: 01:20 EDMS 08/28 00:56 Order name: Procalcitonin; Complete Time: 01:20 EDMS 08/28 02:41 Order name: Glucose, Ancillary Testing EDMD 08/27 23:12 Order name: Accucheck; Complete Time: 23:50 08/27 23:12 Order name: Cardiac monitoring; Complete Time: 23:14 08/27 23:12 Order name: EKG - Nurse/Tech; Complete Time: 23:40 08/27 23:12 Order name: IV Saline Lock - Large Bore; Complete Time: 23:14 08/27 23:12 Order name: Labs collected and sent; Complete Time: 23:14 08/27 23:12 Order name: O2 Per Protocol; Complete Time: 23:14 08/27 23:12 Order name: O2 Sat Monitoring; Complete Time: 23:14 08/27 23:12 Order name: Urine Dipstick-Ancillary (obtain specimen); Complete Time: 00:03 gs EC:09 Rate is 114 beats/min. Rhythm is regular. IN interval is normal. QRS interval is gs normal. QT interval is prolonged. T waves are Normal. No ST changes noted. Clinical impression: Sinus tachycardia. Interpreted by me. Administered Medications: 08/27 23:20 Drug: NS 0.9% 1000 ml Route: IV; Rate: 1 bolus; Site: right antecubital; kr2 08/28 00:04 Follow up: Response: No adverse reaction; Pain is decreased; IV Status: Completed kr2 infusion 08/27 23:20 Drug: fentaNYL (PF) 50 mcg Route: IVP; Site: right antecubital; kr2 08/28 00:04 Follow up: Response: No adverse reaction; Pain is decreased kr2 01:45 Drug: cefOXitin 1 grams Route: IVPB; Infused Over: 30 mins; Site: right antecubital; rr5 02:15 Follow up: Response: No adverse reaction; IV Status: Completed infusion; IV Intake: [id number] Disposition: 08/28/18 02:23 Hospitalization ordered by David Claros for Inpatient Admission. Preliminary diagnosis is colon obstruction. - Bed requested for Telemetry/MedSurg (Inpatient). - Status is Inpatient Admission. rr5 - Condition is Stable. - Problem is new. - Symptoms have improved. UTI on Admission? Yes Critical care time excluding procedures: 02:24 Critical care time: Bedside Care: 10 minutes, Consultation: 10 minutes, Family Intervention: 10 minutes. Total time: 30 minutes Signatures: Dispatcher [employer] EDMD Paty Arguello RN RN aj1 Nicole Mac RN RN kl Adam Evans MD MD gs Reaves, Karey, RN RN kr2 Talat Bates RN RN rr5 Corrections: (The following items were deleted from the chart) 02:22 02:22 08/28/2018 02:22 Discharged to Home. Impression: colon obstruction. Condition is gs Stable. Forms are Medication Reconciliation Form, Thank You Letter, Antibiotic Education, Prescription Opioid Use. Follow up: Private Physician; When: 2 - 3 days; Reason: Re-evaluation by your physician. 03:31 02:23 Hospitalization Ordered by David Claros MD for Inpatient Admission. Preliminary diagnosis is colon obstruction. Bed requested for Telemetry/MedSurg (Inpatient). Status is Inpatient Admission. Condition is Stable. Problem is new. Symptoms have improved. UTI on Admission? Yes. 04:15 03:31 08/28/2018 02:23 Hospitalization Ordered by David Claros MD for Inpatient rr5 Admission. Preliminary diagnosis is colon obstruction. Bed requested for Telemetry/MedSurg (Inpatient). Status is Inpatient Admission. Condition is Stable. Problem is new. Symptoms have improved. UTI on Admission? Yes. kl
[2018-08-28] MEDS ORDERED: ONDANSETRON 4 MG/2 ML VIAL IV PRN (03:03)
[2018-08-28] MEDS ORDERED: MAGNESIUM HYDROXIDE 8% 30 ML PO PRN (03:03)
[2018-08-28 04:54] VITALS: BMI 28.4
[2018-08-28] MEDS: NA CHLORIDE 0.9% 1,000 ML IV SCH ×2 (05:17→12:51)
[2018-08-28] MEDS: HYDROMORPHONE HCL 1 MG/ML INJ IV PRN (05:17)
[2018-08-28] MEDS: KCL 20 MEQ/100 mL IVPB 20 MEQ/100 ML BAG IV SCH ×2 (05:17→07:12)
[2018-08-28] MEDS: METRONIDAZOLE 500mg IVPB 500 MG/100 ML BAG IV SCH ×3 (06:20→18:00)
[2018-08-28] MEDS: Levofloxacin500mg IV 500 MG/100 ML BAG IV SCH (06:20)
[2018-08-28] MEDS: NITROFURAN MACRO 100 MG CAP PO SCH (08:12)
[2018-08-28] MEDS: ASCORBIC ACID 500 MG TABLET PO SCH (08:12)
[2018-08-28] MEDS: VITAMIN D 5,000 UNIT CAP PO SCH (08:13)
[2018-08-28] MEDS: ABIRATERONE ACETATE PO SCH (08:24)
[2018-08-28] MEDS: OMEGA PO SCH (08:25)
[2018-08-28] MEDS: DEXAMETHASONE 0.5 MG PO SCH (08:25)
[2018-08-28] MEDS: TURMERIC PO SCH (08:25)
[2018-08-28] MEDS: IODINE PO SCH (08:25)
--- NOTE | 2018-08-28 08:27 | EKG ---
Test Date: 2018-08-27 Test Time: 23:28:11 Cloth Sander: MEASUREMENT RESULTS: Intervals: Rate: 114 NV: 138 QRSD: 88 QT: 376 QTc: 518 Story: P: 46 NV: 138 QRS: 29 T: 67 INTERPRETIVE STATEMENTS: Sinus tachycardia Otherwise normal ECG Compared to ECG 10/07/2017 22:07:16 Atrial premature complex(es) no longer present Electronically Signed On 08-28-18 08:27:05 [employer] by Connor Soni
--- NOTE | 2018-08-28 08:42 | P.HP ---
Certification for Inpatient Patient admitted to: Inpatient With expected LOS: >2 Midnights Patient will require the following post-hospital care: None Practitioner: I am a practitioner with admitting privileges, knowledge of patient current condition, hospital course, and medical plan of care. Services: Services provided to patient in accordance with Admission requirements found in Title 42 Section 412.3 of the Code of Federal Regulations Patient History Date of Service: 08/28/18 Reason for admission: Colonic obstruction History of Present Illness: Patient is a 78-year-old gentleman who came into the hospital with abdominal pain. Patient with constipation and pain in the left lower quadrant. Patient states that the pain has been gradually worsening. He apparently has used enema with no benefit. Patient's pain has gradually worsened. Patient is not having nausea or vomiting. Patient was admitted to the hospital for evaluation. CT scan of the abdomen and pelvis revealed colonic obstruction. Continue with IV antibiotics and pain control. Allergies No Known Drug Allergies Allergy (Verified 08/28/18 04:59) Unknown No Known Allergies Allergy (Uncoded 10/08/17 03:50) Unknown Home Medications: Abiraterone Acetate [Zytiga] 1 tab PO DAILY 08/28/18 Ascorbic Acid [Vitamin C] 1 tab PO DAILY 08/28/18 Cholecalciferol (Vitamin D3) [Vitamin D3] 5,000 unit PO DAILY 08/28/18 Dexamethasone 0.5 mg PO DAILY 08/28/18 Iodine [Kelp] 225 mcg PO DAILY 08/28/18 Levothyroxine [Synthroid] 100 mcg PO [id number] 08/28/18 Nitrofurantoin Monohyd/M-Cryst [Nitrofurantoin Wilkinson-Mcr 100 mg] 1 cap PO DAILY 08/28/18 [place]-3 Fatty Acids [[place]-3] 1 cap PO DAILY 08/28/18 Simvastatin 20 mg PO BEDTIME 08/28/18 Turmeric 720 cap PO DAILY 08/28/18 - Past Medical/Surgical History Has patient received pneumonia vaccine in the past: Yes Diabetic: No -: Hyperlipidemia -: hypertension -: hypothyroid -: prostate cancer -: bilateral nephrostomy -: hernia repair - Family History Father Family History: Reviewed- Non-Contributory - Social History Smoking Status: Never smoker Alcohol use: No CD- Drugs: No Caffeine use: No Place of Residence: Home Review of Systems 10-point ROS is otherwise unremarkable Physical Examination - Vital Signs Temperature: 98.6 F Blood Pressure: 120/58 Pulse: 94 Respirations: 20 Pulse Ox (%): 96 - Physical Exam General: Alert, In no apparent distress, Oriented x2, Confused HEENT: Atraumatic, PERRLA, Mucous membr. moist/pink, EOMI, Sclerae nonicteric Neck: Supple, 2+ carotid pulse no bruit, No LAD, Without JVD or thyroid abnormality Respiratory: Clear to auscultation bilaterally, Normal air movement Cardiovascular: Regular rate/rhythm, Normal S1 S2, Systolic murmur Gastrointestinal: Normal bowel sounds, Soft and benign, Non-distended, No tenderness Musculoskeletal: No clubbing, No swelling, No tenderness Integumentary: No rashes Neurological: Normal gait, Normal speech, Normal strength at 5/5 x4 extr, Normal tone, Sensation intact, Cranial nerves 3-12 intact, Normal affect Lymphatics: No axilla or inguinal lymphadenopathy - Studies Laboratory Data (last 24 hrs) 08/27/18 23:10: PT 17.0 H, INR 1.44 08/27/18 23:10: WBC 12.1 H, Hgb 11.1 L, Hct 33.6 L, Plt Count 405 08/27/18 23:10: Sodium 139, Potassium 3.3 L, BUN 16, Creatinine 1.20, Glucose 127 H, Total Bilirubin 0.3, AST 53 H, ALT 22, Alkaline Phosphatase 963 H, Lipase 90 Assessment & Plan - Problems (Diagnosis) (1) Colonic obstruction Current Visit: Yes Status: Acute (2) Prostate cancer Current Visit: Yes Status: Acute (3) Obstructive uropathy Current Visit: Yes Status: Acute (4) Nephrostomy tube, retained fragment Current Visit: Yes Status: Acute (5) Hydronephrosis Onset Date: 09/24/16 Current Visit: No Status: Chronic Qualifiers: Hydronephrosis type: unspecified Qualified Code(s): N13.30 - Unspecified hydronephrosis (6) Hypertension Onset Date: 10/08/17 Current Visit: No Status: Chronic Qualifiers: Hypertension type: essential hypertension Qualified Code(s): I10 - Essential (primary) hypertension - Plan Plan: 1. Gentle hydration 2. IV antibiotics 3. Laxatives 4. Monitor renal function 5. Pain control 6. Out of bed and ambulate 7. Monitor labs closely 8. GI and DVT prophylaxis Discharge Plan: Home Plan to discharge in: Greater than 2 days - Advance Directives Does patient have a Living Will: No Does patient have a Durable POA for Healthcare: No - Code Status/Comfort Care Code Status Assessed: Yes Code Status: Full Code Critical Care: No Time Spent Managing PTS Care (In Minutes): 50
[2018-08-28] MEDS ORDERED: MINERAL OIL ENEMA 135 ML BTL PR PRN (10:29)
[2018-08-28] MEDS ORDERED: LACTULOSE 20 GM/30 ML UCUP PO PRN (10:29)
--- NOTE | 2018-08-28 11:16 | RAD REPORT ---
EXAM DESCRIPTION: RAD - Chest Single View - 08/28/2018 12:02 am CLINICAL HISTORY: MALAISE Chest pain. COMPARISON: Chest Single View dated 10/07/2017; CHEST PA AND LAT 2 VIEW dated 07/26/2012 FINDINGS: Portable technique limits examination quality. Mild linear subsegmental atelectasis is present in both lung bases, greater on the left. The lungs ar e otherwise clear. Right-sided port catheter tip in SVC. Heart size is normal. No displaced fractures .
--- NOTE | 2018-08-28 11:50 | RAD REPORT ---
EXAM DESCRIPTION: CT - Stone Protocol - 08/28/2018 4:41 am CLINICAL HISTORY: Flank pain. ABD PAIN COMPARISON: Abdomen Pelvis W Contrast dated 12/07/2017 TECHNIQUE: Axial images were obtained without oral or IV contrast. Lack of contrast limits solid org an and vascular assessment. The [id number] spans the entirety of the system partially obscuring uppermost abdomen and lung bases. Coronal reformatted images were obtained and reviewed. All CT scans are performed using dose optimization technique as appropriate and may include automated exposure control or mA/KV adjustment according to patient size. FINDINGS: Linear opacities are present both lung bases, greater on the left. Noncontrast liver assessment demonstrates a vague sub-capsular lesion in the right lobe measuring abo ut 2 cm, poorly defined on this study. This appears new since the comparative study.The spleen is nor mal. Pancreatic atrophy is seen in the head and neck region. Poorly defined soft tissue density mass measuring 4 x 2 cm is seen in the uncinate process region. Percutaneous nephrostomy tubes are present bilaterally with decompressed collecting systems. Several renal cysts are present bilaterally the largest anteriorly on the left measuring 4.6 cm. No bowel obstruction, free air, free fluid or abscess. Significant fluid and stool fills the colon wh ich appears moderately distended. A few diverticula are noted the left lower quadrant colon.Focal in narrowing is present in the sigmoid colon. Innumerable areas of sclerosis are seen throughout the skeleton compatible with metastasis IMPRESSION: Significant fluid advanced stool retention and distention of the colon is seen. This may be a result of a mild stricture in the region of the sigmoid colon. Followup colonoscopy may be of v alue. Extensive bony metastatic disease. Poorly defined a subcapsular liver lesion as well as soft tissue lesion in the uncinate process noted , new since prior study but incompletely assessed on this limited noncontrast study. Metastatic depos its are a possibility and contrast-enhanced CT or MR imaging would be recommended for followup.
[2018-08-28] MEDS ORDERED: FLUCONAZOLE 200mg IVPB 200 MG/100 ML BAG IV ONE (13:00)
--- NOTE | 2018-08-28 15:26 | CON ---
Date of Consultation: 08/28/2018 Reason For Consultation: Possible colonic obstruction and constipation. Brief History Of Present Illness: The patient is a 78-year-old gentleman with a history of metastatic prostate cancer who presents with no bowel function over approximately 4 days. He states that he has began having abdominal pain approximately 2 days ago. He has had increased use of his t ramadol at home and has noted that since he has been taking increased amounts of pain medication, he has had increasing constipation and worsening pain which created a cycle of increased pain medication and the worsening constipation. He had no nausea or vomiting. The pain was predominantly in the gan prapubic area and left lower quadrant. He has not had similar episodes before in the past. His pain is currently improved, however, he has had no bowel function to speak of since he has been here admi tted to the hospital. Past Medical History: Significant for hypertension, hyperlipidemia, hypothyroidism, metastatic prost ate cancer. Past Surgical History: Includes umbilical hernia repair and bilateral nephrostomy tubes for obstruct ion. Allergies: NO KNOWN DRUG ALLERGIES. Medications: Include Zytiga, ascorbic acid, vitamin D, dexamethasone, iodine, Synthroid, nitrofurant oin, omega-3 fatty acids, simvastatin, and turmeric. Family History: Noncontributory. Social History: He denies smoking, alcohol, or recreational drug use. Review of Systems: A 10-point review of systems other than HPI, denies. Physical Examination: Vital Signs: At the time of my examination, his BMI is 28.5. His vital signs were a blood pressure 120/58, pulse 94, respiratory rate 20, temperature 98.6. General: He is awake, alert, oriented. Psychiatric: He is appropriate, conversive. HEENT: Normocephalic, sclerae anicteric. Mucous membranes are moist. Oropharynx clear. Neck: Supple. No JVD. Chest: Normal expansion and excursion. Cardiovascular: Regular rate and rhythm. Pulmonary: Clear to auscultation bilaterally. Abdomen: Soft, nontender, nondistended. No rebound. No guarding. No focal peritonitis. Extremities: No clubbing, cyanosis, or edema. Skin: Warm and dry. Laboratory Data: Reveals white blood count 12.1, hemoglobin 11.1, hematocrit of 33.6, platelet count is 405, neutrophils are 89%, bands are 23%, PT 17.0, INR 1.44. Sodium 139, potassium 3.3, chloride 106, carbon dioxide 23, BUN 16, creatinine 1.2, glucose is 127, lactic acid 1.4, AST 253, ALT 22, and alkaline phosphatase is 963. Rapid troponin less than 0.02. Lipase is 90. Procalcitonin 3.1. UA showed loaded bacteria, greater than 50 white blood cells, 20-50 red blood cells, 3+ leukocyte estera se, 2+ nitrites. He had a CT scan for abdomen and pelvis, the official dictation is pending. Howeve r, there appears to be evidence of prostate cancer with metastatic disease to the bone and possibly t o the liver. His colon is significantly distended with the stool, although it does not meet criteria for a high perforation risk. It is simply a large volume of stool with what appears to be a stenosi s down near the sigmoid colon. No obvious mass lesions appreciated that I can see. The patient's last colonoscopy was 3 months ago. He states that only diverticulosis was found at thi s time. No masses. No polyps. Assessment And Plan: This is a 78-year-old male, who comes in with likely constipation from combinat ion of diet, increased pain medication, and electrolyte abnormalities. 1.IV fluid hydration. 2.Increase liquids per mouth. 3.We will start enemas. 4.We will add lactulose. 5.Continue medical management. 6.I do not believe that the patient has a surgically emergent abdomen, and as such, I will follow leslie douglas with you and do serial abdominal exams. Thank you for this interesting consult. JORDAN/ESDRAS Voice ID: [id number] Report ID: [id number]
--- NOTE | 2018-08-28 16:53 | PN ---
Date of Progress Note: 08/28/2018 Subjective: Patient seen and examined. Chart reviewed and case discussed with RN and Dr. Marcial. The patient still having some abdominal discomfort, however, pain medications are helping control the pain. Code Status: Full code. Son at the bedside. Treatment plan explained. All questions answered. Medications: List reviewed. Physical Examination: Vital Signs: Temperature 98.6, heart rate 94, blood pressure 120/58, respirations 20, O2 96% on 2 L via nasal cannula. General: Awake, alert, oriented times x3. Elderly male, ill appearing. CV: S1 and S2. Regular rate and rhythm. Peripheral pulses present. No murmurs. Respiratory: Clear to auscultation bilaterally. No wheezing or stridor. No use of accessory muscle s. Gastrointestinal: Abdomen is soft, mild distention, nontender. Hypoactive bowel sounds. No remote or guarding. Extremities: No clubbing, cyanosis, or edema. No calf tenderness. Neuro: Cranial nerves 2 through 12 are intact grossly. No focal neurological deficit. Speech is no rmal. Laboratory Data: Sodium 139, potassium 3.3, chloride 106, CO2 23, BUN 16, creatinine 1.2, lactic aci d 1.4, calcium 8.6, procalcitonin 3.14, albumin 2.4. WBC 12.1, hemoglobin and hematocrit 11.1 and 33 .6, platelets 405, neutrophils 89.9%, 23% bands. UA shows leukocyte esterase 3+, 250 rbcs, greater t peralta 50 wbcs, loaded bacteria, few yeast. Blood cultures and urine cultures pending. CT scan of the abdomen personally reviewed shows significant fluid, advanced stool retention, and distention of the colon is seen may be result of mild stricture in the region of the sigmoid colon. Followup colonosco py may be of value. Extensive bony metastatic disease. Poorly defined subscapular liver lesion as w ell as soft tissue lesion in the uncinate process noted new since prior study, but incompletely asses sed on this study metastatic deposits are a possibility. Assessment And Plan: A 78-year-old male with: 1.Colonic obstruction in the sigmoid region. Continue with conservative treatment. Keep n.p.o., IV fluids. Surgery has been consulted. 2.History of prostate cancer. CT scan does show diffuse metastatic disease on the liver and the unc inate process. 3.Obstructive uropathy. 4.Hydronephrosis. 5.Essential hypertension. 6.Hypokalemia. We will replace and monitor. 7.Mixed hyperlipidemia, on statin. 8.Hypothyroidism, on levothyroxine. Continue n.p.o. status. 9.Asymptomatic bacteriuria. The patient does have bacteria as well as yeast on the urine. Cultures are pending. We will give a dose of fluconazole. The patient already on antibiotics. Length Of Stay: Greater than 2 midnights. NAA Voice ID: [id number] Report ID: [id number]
[2018-08-28] MEDS ORDERED: KCL 20 MEQ/100 mL IVPB 20 MEQ/100 ML BAG IV SCH (20:00)
[2018-08-28] MEDS: ATORVASTATIN 10 MG TAB PO SCH (21:10)
[2018-08-28 21:56] LABS: Urine Appearance CLOUDY; Urine Bilirubin NEGATIVE (NEG); Urine Blood 2+ (NEG); Urine Color DK YELLOW; Urine Glucose NEGATIVE (NEG); Urine Protein 1+ (NEG); Urine Specific Gravity 1.025 (1.005-1.030); Urine Urobilinogen 0.2 mg/dL (0.2-1.0); Urine pH 5.5 (5.0-7.0)
[2018-08-28 21:58] LABS: Urine Microscopic Reflex ORDER UMIC
[2018-08-28 22:54] LABS: Urine Culture Reflex Order NOT NEEDED
[2018-08-28 22:56] LABS: Urine Bacteria 20-50 /HPF (NONE SEEN); Urine RBC <5 /HPF (NONE SEEN); Urine Yeast PRESENT (NONE SEEN); Urine Yeast with Hyphae PRESENT
[2018-08-29] MEDS: METRONIDAZOLE 500mg IVPB 500 MG/100 ML BAG IV SCH ×4 (00:36→17:54)
[2018-08-29] MEDS: ACETAMINOPHEN 500 MG TAB PO PRN ×2 (04:02→21:29)
[2018-08-29] MEDS: LEVOTHYROXINE SOD 0.1 MG TAB PO SCH (05:31)
[2018-08-29] MEDS: NA CHLORIDE 0.9% 1,000 ML IV SCH ×4 (05:31→20:00)
[2018-08-29] MEDS: Levofloxacin500mg IV 500 MG/100 ML BAG IV SCH (05:31)
[2018-08-29 05:46] LABS: Absolute Lymphocytes (CBC) 1.6 K/uL (0.7-4.9); Absolute Neutrophil 8.9 K/uL (1.8-8.0); Basophils % 0.2 % (0-1.3); Eosinophils % 0.5 % (0-4.4); Hematocrit 26.5 % (39.6-49.0); Lymphocytes % 13.6 % (15.3-44.8); MCH 27.1 pg (27.0-35.0); MPV 7.6 fL (7.6-11.3); Monocytes % 8.6 % (3.3-12.3); RBC Red Blood Cell Count 3.28 M/uL (4.33-5.43)
[2018-08-29 06:00] LABS: Albumin 1.8 g/dL (3.4-5.0); Bilirubin Total 0.4 mg/dL (0.2-1.0); Magnesium 2.1 mg/dL (1.8-2.4); Phosphorus 2.6 mg/dL (2.5-4.9); Potassium 3.8 mmol/L (3.5-5.1); Protein, Total 5.5 g/dL (6.4-8.2)
[2018-08-29] MEDS ORDERED: POTASSIUM 25 MEQ EFFERV TAB PO ONE (06:03)
[2018-08-29] MEDS: ABIRATERONE ACETATE PO SCH (09:00)
[2018-08-29] MEDS: OMEGA PO SCH (09:00)
[2018-08-29] MEDS: DEXAMETHASONE 0.5 MG PO SCH (09:00)
[2018-08-29] MEDS: TURMERIC PO SCH (09:00)
[2018-08-29] MEDS: ASCORBIC ACID 500 MG TABLET PO SCH (09:00)
[2018-08-29] MEDS: IODINE PO SCH (09:00)
[2018-08-29] MEDS: NITROFURAN MACRO 100 MG CAP PO SCH (09:52)
[2018-08-29] MEDS: VITAMIN D 5,000 UNIT CAP PO SCH (09:52)
--- NOTE | 2018-08-29 12:26 | P.PN ---
Subjective Date of Service: 08/29/18 Chief Complaint: Colonic obstruction Subjective: Improving (2 small bm yesterday. no pain) Physical Examination - Vital Signs Temperature: 96.1 F Blood Pressure: 133/56 Pulse: 71 Respirations: 18 Pulse Ox (%): 93 - Physical Exam General: Alert, In no apparent distress, Cooperative HEENT: Mucous membr. moist/pink Gastrointestinal: Soft and benign, Non-distended, No ascites, No tenderness, No masses, No rebound, No guarding Neurological: Normal gait, Normal speech - Studies Microbiology Data (last 24 hrs): 08/27/18 23:59 Clean Catch Urine Harrah Count - Final BETWEEN 10,000 & 100,000 CFU/ML 08/27/18 23:59 Clean Catch Urine - Final Assessment And Plan - Current Problems (Diagnosis) (1) Constipation Current Visit: Yes Status: Acute Plan: - continue enemas, add tap water enemas - continue lactulose - will consider mag citrate tomorrow - continue clear liquids - ambulate
[2018-08-29] MEDS: DOCOSAHEXANOIC AC/EPA 1000 MG PO SCH (12:36)
[2018-08-29] MEDS: LACTULOSE 20 GM/30 ML UCUP PO SCH ×2 (13:35→21:30)
[2018-08-29] MEDS: MINERAL OIL ENEMA 135 ML BTL PR SCH (13:35)
--- NOTE | 2018-08-29 20:03 | PN ---
Date of Progress Note: 08/29/2018 Subjective: The patient is seen and examined. Chart reviewed and case discussed with RN and Dr. Marcial. The patient is doing better. He states that he has passed gas and small bowel movements. The pain is improved. Medications: List reviewed. Physical Examination: Vital Signs: Temperature 96.1, heart rate 71, blood pressure 133/56, respirations 18, O2 93% on 2 L via nasal cannula. General: Awake, alert, oriented x3. Ill-appearing, elderly male. CV: S1, S2. Peripheral pulses present. Regular rate and rhythm. Respiratory: Moving air well bilaterally. No wheezing or stridor. No use of accessory muscles. Gastrointestinal: Abdomen is soft. Mild tenderness to palpation. No guarding or rigidity. Bowel sounds positive. Extremities: No clubbing, cyanosis, or edema. Neurologic: Nonfocal. Laboratory Data: Sodium 139, potassium 3.8, chloride 106, CO2 25, BUN 18, creatinine 0.9, glucose 120, calcium 7.9, phosphorus 2.6, magnesium 2.1, alkaline phosphatase 659, albumin 1.8. WBC 11.6, hemoglobin and hematocrit 8.9 and 26.5, platelets 340, neutrophils 77%, no bands. Urine culture shows mixed jayson. Blood cultures, no growth to date. Assessment: A 78-year-old male with: 1. Colonic obstruction in the sigmoid region, likely ileus. The patient is improved with conservative treatment, is passing gas and stool. The patient tolerating clear liquids. We will advance diet and monitor. Appreciate Dr. Marcial's input. May need mag citrate in a.m. 2. History of prostate cancer with metastatic disease to the liver on treatment. 3. Obstructive uropathy. 4. Hydronephrosis. 5. Severe protein-calorie malnutrition, albumin 1.8. 6. Essential hypertension, stable. Resume home medications. 7. Hypokalemia. Replace and monitor. 8. Mixed hyperlipidemia. Continue statin. 9. Hypothyroidism. Continue levothyroxine. 10. Asymptomatic bacteriuria. The patient did have some yeast present in the urine as well. Cultures showing no growth. He was treated with a dose of fluconazole. Plan: 1. Advance diet as tolerated. 2. Likely discharge in the next 24 to 48 hours depending on clinical response. SA/MODL Voice ID: [id number] Report ID: [id number]
[2018-08-29] MEDS: ATORVASTATIN 10 MG TAB PO SCH (21:30)
[2018-08-30] MEDS: NA CHLORIDE 0.9% 1,000 ML IV SCH (00:42)
[2018-08-30] MEDS: METRONIDAZOLE 500mg IVPB 500 MG/100 ML BAG IV SCH ×3 (00:42→12:00)
[2018-08-30] MEDS: HYDROMORPHONE HCL 1 MG/ML INJ IV PRN (02:25)
[2018-08-30] MEDS: LEVOTHYROXINE SOD 0.1 MG TAB PO SCH (05:35)
[2018-08-30 05:47] LABS: Absolute Lymphocytes (CBC) 1.9 K/uL (0.7-4.9); Absolute Monocytes 0.9 K/uL (0.1-1.3); Absolute Neutrophil 8.3 K/uL (1.8-8.0); Basophils % 0.5 % (0-1.3); Eosinophils % 1.6 % (0-4.4); Hematocrit 27.7 % (39.6-49.0); Lymphocytes % 16.8 % (15.3-44.8); MCH 26.6 pg (27.0-35.0); MCV 81.6 fL (80-100); MPV 7.7 fL (7.6-11.3); Monocytes % 7.8 % (3.3-12.3); RBC Red Blood Cell Count 3.39 M/uL (4.33-5.43)
[2018-08-30 06:05] LABS: BUN Blood Urea Nitrogen 14 mg/dL (7-18); Bicarbonate 24 mmol/L (21-32); Glucose Level 106 mg/dL (74-106); Potassium 3.4 mmol/L (3.5-5.1); Sodium Level 140 mmol/L (136-145)
[2018-08-30] MEDS ORDERED: POTASSIUM 25 MEQ EFFERV TAB PO ONE (06:24)
[2018-08-30] MEDS: Levofloxacin500mg IV 500 MG/100 ML BAG IV SCH (06:44)
[2018-08-30] MEDS: DEXAMETHASONE 0.5 MG PO SCH (08:25)
[2018-08-30] MEDS: ABIRATERONE ACETATE PO SCH (08:25)
[2018-08-30] MEDS: IODINE PO SCH (08:25)
[2018-08-30] MEDS: TURMERIC PO SCH (08:26)
[2018-08-30] MEDS: ASCORBIC ACID 500 MG TABLET PO SCH (09:00)
[2018-08-30] MEDS: DOCOSAHEXANOIC AC/EPA 1000 MG PO SCH (10:25)
[2018-08-30] MEDS: NITROFURAN MACRO 100 MG CAP PO SCH (10:25)
[2018-08-30] MEDS: VITAMIN D 5,000 UNIT CAP PO SCH (10:26)
[2018-08-30] MEDS: LACTULOSE 20 GM/30 ML UCUP PO SCH (10:26)
[2018-08-30] MEDS: MINERAL OIL ENEMA 135 ML BTL PR SCH (10:27)
[2018-08-30 10:34] VITALS: O2SAT 94
[2018-08-30 13:10] VITALS: BP 126/69; TEMP 97.3
--- NOTE | 2018-08-31 07:17 | DS ---
Date of Discharge: 08/30/2018 [employer] Instructor: Dr. Marcial, General Surgery. Admitting Diagnoses: 1.Colonic obstruction. 2.Prostate cancer, metastatic. 3.Obstructive uropathy. 4.Hydronephrosis. 5.Hypertension. Discharge Diagnoses: 1.Colonic obstruction in the sigmoid region secondary to ileus, resolved. 2.History of prostate cancer with metastatic disease to the liver, currently on treatment. Follows with [facility] and Dr. Almaguer for second opinion. 3.Severe protein-calorie malnutrition. Hospital Course: Patient has been noncompliant with his treatment. CT scan done, showed obstruction and ileus. Patient was started on conservative treatment, n.p.o. status, IV fluids. He did well. He was able to pass flatus and has a bowel movement. His diet was slowly advanced. He was toleratin g his diet. Patient was also seen by Dr. Marcial of General Surgery. No surgical intervention was r ecommended. Patient scan also showed lesions in the liver as well as the uncinate process of the patel creas, which is new to the patient as well as Dr. Almaguer and likely has further advancing metasta tic disease. Patient will need to follow up with his oncologist at [facility] with new scans. His last PET scan was approximately a year ago per Dr. Almaguer. Patient was counseled regarding his n oncompliance. He understands that it has resulted in further metastatic disease. Patient will go fo r his port check tomorrow to the local oncologist, needs to make an appointment with [facility], and has a followup appointment with Dr. Almaguer in September. Patient otherwise did well. He was then cleared for discharge. He was sent home in a stable condition. Activity: As tolerated. Medications: As per medication reconciliation list. Patient of course has antibiotics. Followup: With primary care physician in 2-3 days. Follow up with oncologist at [facility] as well as Dr. Almaguer. Return to ER for worsening condition. Diet: Bacon diet before proceeding with regular diet. Physical Examination: General: Awake, alert, oriented, no acute distress. Elderly gentleman. CV: S1, S2. Regular rate and rhythm. No murmurs. Respiratory: Moving air well bilaterally. No wheezing. Gastrointestinal: Abdomen is soft, nontender, nondistended. Positive bowel sounds. Extremities: No clubbing, cyanosis, or edema. Neurologic: Nonfocal. Total time spent discharging the patient was 39 minutes. /ESDRAS Voice ID: [id number] Report ID: [id number]
== END 2018-08-30 15:08 | disposition home or self-care (01) | DRG 388 ==
LOC: ER 21:51 → ERHOLD 08-28 03:03 → 2ND 08-28 04:12
PROVIDERS: ADMIT Hospitalist; ATTEND Family Medicine
DX: K56.7 Ileus, unspecified (principal); E43 Unspecified severe protein-calorie malnutrition; C78.7 Secondary malignant neoplasm of liver and intrahepatic bile duct; C78.89 Secondary malignant neoplasm of other digestive organs; C79.51 Secondary malignant neoplasm of bone; N13.30 Unspecified hydronephrosis; C61 Malignant neoplasm of prostate; I10 Essential (primary) hypertension; E78.2 Mixed hyperlipidemia; E03.9 Hypothyroidism, unspecified
CPT/HCPCS: 36415; 71045; 74176; 76377; 80048; 80053; 80076; 81003; 81015; 82274; 82550; 82962; 83605; 83690; 83735; 84100; 84132; 84145; 84484; 85025; 85610; 87040; 87086; 87088; 93005; 96361; 96365; 96375; 97163; 99285; J0694; J1170; J1450; J3010; J7030